=== PATIENT | male | born 1930 | race Hispanic/Latino ===

== ENCOUNTER 2017-03-17 11:00 | Inpatient (IN) | payer MEDICARE ==
--- NOTE | 2017-03-17 11:11 | C.PDOC ---
History Of Present Illness 86M c/o head and neck pain after a fall last night around 7pm- he says he slipped and fell in his home while he was trying to throw something in a waste basket. he was unable to get up so he lay there until this morning when someone checked on him and found him lying on the floor. his nephew says he fell a few days ago and has been c/o low back pain also since then but refused to come to the hospital. - HPI Time Seen by Provider: 03/17/17 11:11 Chief Complaint (Nursing): Trauma Past Medical History Vital Signs: Last Vital Signs Temp 99.0 F 03/21/17 08:14 Pulse 78 03/21/17 08:14 Resp 20 03/21/17 08:14 BP 132/72 03/21/17 08:14 Pulse Ox 95 03/21/17 08:14 Family History: States: Other Other Family History: nc Review Of Systems Except As Marked, All Systems Reviewed And Found Negative. Constitutional: Negative for: Fever, Chills Cardiovascular: Negative for: Chest Pain Respiratory: Negative for: Cough, Shortness of Breath Gastrointestinal: Negative for: Nausea, Vomiting, Abdominal Pain Musculoskeletal: Positive for: Neck Pain Neurological: Positive for: Headache. Negative for: Weakness, Numbness Physical Exam - Physical Exam Appears: Non-toxic, No Acute Distress Skin: Warm, Dry Head: Swelling (occipital ), No Laceration Eye(s): bilateral: PERRL, EOMI Nose: No Epistaxis Oral Mucosa: Moist Neck: Normal ROM, Midline Cervical Tenderness Chest: No Deformity, No Ecchymosis Cardiovascular: Rhythm Regular Respiratory: No Decreased Breath Sounds, No Accessory Muscle Use, No Rales, No Rhonchi Gastrointestinal/Abdominal: Soft, No Tenderness Extremity: Normal ROM, No Deformity Pulses: Left Radial: Normal, Right Radial: Normal, Left Dorsalis Pedis: Normal, Right Dorsalis Pedis: Normal Neurological/Psych: Oriented x3, Normal Cranial Nerves, Normal Motor, Normal Sensation, Other (no focal deficits) ED Course And Treatment - Laboratory Results Result Diagrams: 03/21/17 07:28 03/21/17 07:28 - Other Rad X-Ray - Lumbar Spine X-Ray: Viewed By Me, Read By Radiologist Interpretation: PROCEDURE: Radiographs of the Lumbar Spine. HISTORY: fall pain. COMPARISON: No prior. FINDINGS: BONES: Normal lumbar curvature appreciated there is no spondylolisthesis, however, there is a moderate compression fracture the L2 vertebral body which is diminished in height prostate 50 per sec compared to the surrounding vertebral bodies that at the mid portion. No suspicious lytic or blastic changes seen related. Remaining review bodies appear normal in height overall. Diffuse osteopenia suggests osteoporosis. DISC SPACES: Multilevel spondylosis appears moderate in severity in concentrated at the mid to inferior levels. Disc height loss is mild at L4-5 indicative of degenerative disc disease as well. OTHER FINDINGS: None. IMPRESSION: 1. Moderate compression fracture L2, of indeterminate age. MRI or bone scan can better define stage a fracture than radiography. CT may be helpful. 2. Multilevel degenerative disc disease. 3. Diffuse osteopenia suggests osteoporosis. X-Ray - Pelvis X-Ray: Viewed By Me, Read By Radiologist Interpretation: PROCEDURE: Radiographs of the pelvis. HISTORY: fall. COMPARISON: None. FINDINGS: BONES: No suspicious lytic or blastic changes seen throughout the pelvic ring with the bilateral hip joints. No fractures identified grossly. JOINTS: Sacroiliac Joints: Sacroiliac and bilateral hip joints appear mildly degenerated and otherwise unremarkable. Pubic Symphysis: Unremarkable. OTHER FINDINGS: None. IMPRESSION: An intact pelvic ring is appreciated without fracture apparent. Moderate degenerate changes seen the bilateral hip and sacroiliac joints. CXR X-Ray: Viewed By Me, Read By Radiologist Interpretation: PROCEDURE: CHEST RADIOGRAPH, 1 VIEW. HISTORY: fall. COMPARISON: None available. FINDINGS: LUNGS: No acute infiltrate is identified bilaterally. PLEURA: No pneumothorax or pleural fluid seen. CARDIOVASCULAR: Cardiac silhouette appears somewhat prominent however there is no pulmonary vascular derangement appreciated. Trachea is midline. OSSEOUS STRUCTURES: No significant abnormalities. VISUALIZED UPPER ABDOMEN: Normal. OTHER FINDINGS: None. IMPRESSION: No definite acute pulmonary disease bilaterally. Cardiomegaly is not excluded. No pulmonary vascular derangement. - CT Scan/US CT - Head Other Rad Studies (CT/US): Read By Radiologist, Radiology Report Reviewed CT/US Interpretation: PROCEDURE: CT HEAD WITHOUT CONTRAST. HISTORY: fall head pain. COMPARISON: None available. TECHNIQUE: Axial computed tomography images were obtained through the head/brain without intravenous contrast. Radiation dose: Total exam DLP = 1040.03 mGy-cm. This CT exam was performed using one or more of the following dose reduction techniques: Automated exposure control, adjustment of the mA and/or kV according to patient size, and/ or use of iterative reconstruction technique. FINDINGS: HEMORRHAGE: No intracranial hemorrhage. BRAIN: Diffuse atrophy with prominence of the ventricles and sulci noted. No mass effect or edema. Intracranial atherosclerosis. Scattered periventricular and subcortical white matter hypodensities, which are nonspecific, but often seen with chronic microvascular ischemic disease. Please note that MRI with diffusion imaging is more sensitive in the detection of acute ischemic event. VENTRICLES: No hydrocephalus. CALVARIUM: Unremarkable. PARANASAL SINUSES: Unremarkable as visualized. No significant inflammatory changes. MASTOID AIR CELLS: Unremarkable as visualized. No inflammatory changes. OTHER FINDINGS: Small scalp hematoma at the vertex. IMPRESSION: No acute intracranial pathology identified. Small scalp hematoma at the vertex. Generalized atrophy. Nonspecific white matter changes. CT - Cervical Spine Other Rad Studies (CT/US): Read By Radiologist, Radiology Report Reviewed CT/US Interpretation: PROCEDURE: CT Cervical Spine without contrast. HISTORY: <fall neck pain>. COMPARISON: None available. TECHNIQUE: Axial computed tomography images were obtained of the cervical spine without the use of intravenous contrast. Coronal and sagittal reformatted images were created and reviewed. Radiation dose: Total exam DLP = 499.22 mGy-cm. This CT exam was performed using one or more of the following dose reduction techniques: Automated exposure control, adjustment of the mA and/or kV according to patient size, and/or use of iterative reconstruction technique. FINDINGS: VERTEBRAE: The vertebral bodies are maintained in height. Normal vertebral alignment is maintained. The atlantoaxial articulation and odontoid process are intact. DISCS/SPINAL CANAL/NEURAL FORAMINA: Multilevel degenerative disc disease from C3-4 through C6-7 with disc space narrowing and osteophytes. No central spinal stenosis. There is significant right neural foraminal stenosis at the C4-5 intervertebral disc space level. Moderate neural foraminal stenosis is noted on the left side at C3-4. PARASPINAL SOFT TISSUES: Unremarkable. OTHER FINDINGS : None. IMPRESSION: No fracture/ dislocation. Multilevel degenerative disc disease. Medical Decision Making Medical Decision Making: ecg- nsr [id number], nl axis, no acute ischemia Disposition - Disposition Disposition: HOSPITALIZED Disposition Time: 15:05 Condition: STABLE - Clinical Impression Clinical Impression: Frequent falls, Generalized weakness, Bandemia
[2017-03-17 11:43] LABS: BASO # 0.3 K/uL (0.0-0.2); BASO % 2.3 % (0.0-2.0); EOS # 0.4 K/uL (0.0-0.7); EOS % 2.8 % (0.0-4.0); HEMATOCRIT 31.1 % (35.0-51.0); LYMPH # 1.2 K/uL (1.0-4.3); LYMPH % 7.9 % (20.0-40.0); MEAN CELL VOLUME 75.9 fL (80.0-94.0); MEAN CORPUSCULAR HEMOGLOBIN 23.8 pg (27.0-31.0); MEAN CORPUSCULAR HGB CONC 31.4 g/dL (33.0-37.0); MONO % 6.7 % (0.0-10.0); NRBC % 0.2 % (0.0-2.0); PLATELET COUNT 672 K/uL (130-400); RED CELL DISTRIBUTION WIDTH 20.9 % (11.5-14.5); WHITE BLOOD COUNT 15.2 K/uL (4.8-10.8)
[2017-03-17 11:47] LABS: CHLORIDE 105 mmol/L (98-107); INR 1.4; POTASSIUM 4.5 mmol/L (3.6-5.2); SODIUM 142 mmol/L (132-148)
[2017-03-17 11:49] LABS: AST/SGOT 32 U/L (17-59); BILIRUBIN,TOTAL 0.8 mg/dL (0.2-1.3); CARBON DIOXIDE 25 mmol/L (22-30); GFR AFRICAN-AMERICAN > 60
[2017-03-17 11:50] LABS: ALB/GLOB RATIO 0.9 (1.0-2.1); ALKALINE PHOSPHATASE 121 U/L (38-126); ALT/SGPT 22 U/L (21-72); BLOOD UREA NITROGEN 27 mg/dL (9-20); CALCIUM 8.6 mg/dl (8.6-10.4); GLUCOSE,RANDOM 139 mg/dL (75-110); TOTAL PROTEIN 7.4 g/dL (6.3-8.3)
[2017-03-17 12:21] LABS: VENOUS BLOOD GAS BASE EXCESS 2.2 mmol/L (0.0-2.0); VENOUS BLOOD GAS PCO2 46 mmHg (40-60); VENOUS BLOOD PH 7.39 (7.32-7.43)
[2017-03-17 12:22] LABS: EOSINOPHIL 5 % (0-4); METAMYELOCYTE 1 % (0-0); MYELOCYTE 8 % (0-0); NEUTROPHIL 48 % (50-75); TOTAL CELLS COUNTED 100
[2017-03-17 12:24] LABS: GIANT PLATELETS PRESENT; LARGE PLATELETS PRESENT
--- NOTE | 2017-03-17 12:38 | CT ---
PROCEDURE: CT HEAD WITHOUT CONTRAST. HISTORY: fall head pain COMPARISON: None available. TECHNIQUE: Axial computed tomography images were obtained through the head/brain without intravenous contrast. Radiation dose: Total exam DLP = 1040.03 mGy-cm. This CT exam was performed using one or more of the following dose reduction techniques: Automated exposure control, adjustment of the mA and/or kV according to patient size, and/or use of iterative reconstruction technique. FINDINGS: HEMORRHAGE: No intracranial hemorrhage. BRAIN: Diffuse atrophy with prominence of the ventricles and sulci noted. No mass effect or edema. Intracranial atherosclerosis. Scattered periventricular and subcortical white matter hypodensities, which are nonspecific, but often seen with chronic microvascular ischemic disease. Please note that MRI with diffusion imaging is more sensitive in the detection of acute ischemic event. VENTRICLES: No hydrocephalus. CALVARIUM: Unremarkable. PARANASAL SINUSES: Unremarkable as visualized. No significant inflammatory changes. MASTOID AIR CELLS: Unremarkable as visualized. No inflammatory changes. OTHER FINDINGS: Small scalp hematoma at the vertex. IMPRESSION: No acute intracranial pathology identified. Small scalp hematoma at the vertex. Generalized atrophy. Nonspecific white matter changes.
--- NOTE | 2017-03-17 12:55 | CT ---
PROCEDURE: CT Cervical Spine without contrast HISTORY: <fall neck pain> COMPARISON: None available. TECHNIQUE: Axial computed tomography images were obtained of the cervical spine without the use of intravenous contrast. Coronal and sagittal reformatted images were created and reviewed. Radiation dose: Total exam DLP = 499.22 mGy-cm. This CT exam was performed using one or more of the following dose reduction techniques: Automated exposure control, adjustment of the mA and/or kV according to patient size, and/or use of iterative reconstruction technique. FINDINGS: VERTEBRAE: The vertebral bodies are maintained in height. Normal vertebral alignment is maintained. The atlantoaxial articulation and odontoid process are intact. DISCS/SPINAL CANAL/NEURAL FORAMINA: Multilevel degenerative disc disease from C3-4 through C6-7 with disc space narrowing and osteophytes. No central spinal stenosis. There is significant right neural foraminal stenosis at the C4-5 intervertebral disc space level. Moderate neural foraminal stenosis is noted on the left side at C3-4. PARASPINAL SOFT TISSUES: Unremarkable. OTHER FINDINGS: None. IMPRESSION: No fracture/ dislocation. Multilevel degenerative disc disease.
[2017-03-17 12:57] LABS: RBC URINE 1 /hpf (0-3); URINE BACTERIA RARE (<OCC); URINE BILIRUBIN NEGATIVE (NEGATIVE); URINE BLOOD NEGATIVE (NEGATIVE); URINE COLOR Yellow (YELLOW); URINE GLUCOSE (UA) NORMAL (Normal); URINE KETONE NEGATIVE (NEGATIVE); URINE LEUKOCYTE ESTERASE NEG Leu/uL (Negative); URINE PROTEIN NEGATIVE (NEGATIVE); WBC URINE 2 /hpf (0-5)
--- NOTE | 2017-03-17 13:03 | RAD ---
PROCEDURE: Radiographs of the pelvis. HISTORY: fall COMPARISON: None. FINDINGS: BONES: No suspicious lytic or blastic changes seen throughout the pelvic ring with the bilateral hip joints. No fractures identified grossly. JOINTS: Sacroiliac Joints: Sacroiliac and bilateral hip joints appear mildly degenerated and otherwise unremarkable. Pubic Symphysis: Unremarkable. OTHER FINDINGS: None. IMPRESSION: An intact pelvic ring is appreciated without fracture apparent. Moderate degenerate changes seen the bilateral hip and sacroiliac joints.
--- NOTE | 2017-03-17 13:06 | RAD ---
PROCEDURE: CHEST RADIOGRAPH, 1 VIEW HISTORY: fall COMPARISON: None available. FINDINGS: LUNGS: No acute infiltrate is identified bilaterally. PLEURA: No pneumothorax or pleural fluid seen. CARDIOVASCULAR: Cardiac silhouette appears somewhat prominent however there is no pulmonary vascular derangement appreciated. Trachea is midline. OSSEOUS STRUCTURES: No significant abnormalities. VISUALIZED UPPER ABDOMEN: Normal. OTHER FINDINGS: None. IMPRESSION: No definite acute pulmonary disease bilaterally. Cardiomegaly is not excluded. No pulmonary vascular derangement.
--- NOTE | 2017-03-17 13:15 | RAD ---
PROCEDURE: Radiographs of the Lumbar Spine. HISTORY: fall pain COMPARISON: No prior. FINDINGS: BONES: Normal lumbar curvature appreciated there is no spondylolisthesis, however, there is a moderate compression fracture the L2 vertebral body which is diminished in height prostate 50 per sec compared to the surrounding vertebral bodies that at the mid portion. No suspicious lytic or blastic changes seen related. Remaining review bodies appear normal in height overall. Diffuse osteopenia suggests osteoporosis. DISC SPACES: Multilevel spondylosis appears moderate in severity in concentrated at the mid to inferior levels. Disc height loss is mild at L4-5 indicative of degenerative disc disease as well. OTHER FINDINGS: None. IMPRESSION: 1. Moderate compression fracture L2, of indeterminate age. MRI or bone scan can better define stage a fracture than radiography. CT may be helpful. 2. Multilevel degenerative disc disease. 3. Diffuse osteopenia suggests osteoporosis.
[2017-03-17] MEDS ORDERED: Sodium Chloride 0.9% 1,000 ML IV ONE (13:41)
[2017-03-17] MEDS ORDERED: Sodium Chloride 0.9% 1,000 ML ONE (17:03)
[2017-03-17] MEDS: Sodium Chloride 0.9% 1,000 ML IV SCH (17:03)
--- NOTE | 2017-03-17 18:32 | CP.PCM.HP ---
Past Patient History - Past Social History Smoking Status: Never Smoked - PSYCHIATRIC Hx Substance Use: No - SURGICAL HISTORY Hx Surgeries: No - ANESTHESIA Hx Anesthesia: No Hx Anesthesia Reactions: No Meds Allergies/Adverse Reactions: Allergies Allergy/AdvReac Type Severity Reaction Status Date / Time No Known Allergies Allergy Unverified 03/17/17 11:11 Physical Exam - Constitutional Appears: Well - Head Exam Head Exam: ATRAUMATIC, NORMAL INSPECTION, NORMOCEPHALIC - Eye Exam Eye Exam: EOMI, Normal appearance, PERRL Pupil Exam: NORMAL ACCOMODATION, PERRL - ENT Exam ENT Exam: Mucous Membranes Moist, Normal Exam - Neck Exam Neck exam: Positive for: Normal Inspection - Respiratory Exam Respiratory Exam: Decreased Breath Sounds - Cardiovascular Exam Cardiovascular Exam: REGULAR RHYTHM, +S1, +S2 - GI/Abdominal Exam GI & Abdominal Exam: Diminished Bowel Sounds, Soft - Rectal Exam Rectal Exam: Deferred Results - Vital Signs Recent Vital Signs: Last Vital Signs Temp 97.5 F L 03/17/17 17:33 Pulse 95 H 03/17/17 17:33 Resp 20 03/17/17 17:33 BP 146/70 03/17/17 17:33 Pulse Ox 97 03/17/17 17:33 - Labs Result Diagrams: 03/17/17 11:31 03/17/17 11:31
--- NOTE | 2017-03-17 19:28 | CARD ---
APPROVED REPORT EKG Measurement Heart [id number] <Conclusion> Normal sinus rhythm Normal ECG
--- NOTE | 2017-03-18 00:33 | CON ---
REFERRING PHYSICIAN: Dudley Rodriguez MD REASON FOR CONSULTATION: Back pain and frequent falls. HISTORY OF PRESENT ILLNESS: The patient is an 86-year-old gentleman, right handed, with past medical history of frequent falls. The patient was admitted because of a fall at home the night before around 7:00, and the patient was unable to stand up until a family member came this morning and found him on the floor and picked him up from the floor. The patient stated that he has been falling lately for the last 2 months, and he fell down a few days ago and then few weeks ago. The patient is not sure how he is falling; his slips, trips or his legs give away. The patient has been complaining of some back pain for the last few days after the fall before few days ago. The patient stated he used to do exercise, but for the last few months, he stopped doing it. The patient lives alone, able to take care of himself. The patient denies loss of consciousness, confusion. The patient is ambulating independently without use of cane. The patient is complaining of low back pain, not radiating to lower extremities, moderately severe. The patient did not seek medical attention after previous admissions until this admission. No CAT scan or MRI or x-rays in the past. PAST MEDICAL HISTORY: No significant past medical history. SOCIAL HISTORY: Nonsmoker, ethanol or drug abuser. ALLERGIES: NO KNOWN ALLERGIC REACTION TO MEDICATIONS. MEDICATIONS: Acetaminophen and pantoprazole. PAST SURGICAL HISTORY: No major surgery in the past. REVIEW OF SYSTEMS: As per H and P and ER noted reviewed. PHYSICAL EXAMINATION VITAL SIGNS: Blood pressure 106/60, pulse 90, respirations 16, temperature 99.1. MENTAL STATUS: The patient is alert, awake and oriented x3. Normal naming, repetition and comprehension. No agnosia. No apraxia. No right or left confusion. CRANIAL NERVES: Pupils 2 mm bilaterally, sluggishly reactive. No facial asymmetry. V1 to V3 intact. No gaze preference. No nystagmus. No double vision. There is muscle wasting in upper and lower extremities and facial muscles. MOTOR: Normal tone in upper and lower extremities. No pronator drift. No tremor. No cogwheel rigidity. The upper extremity, deltoid, elbow geoint analyst overall 5-/5. Lower extremities: Bilateral hip flexion 4+/5, knee flexion and extension and ankle dorsiflexion and plantar extension 4+ to 5/5. Deep tendon reflexes absent in upper and lower extremities. Plantar flexion on both sides. SENSORY: Pinprick, light touch symmetric. Coordination, [id number] intact. LABORATORY DATA: Reviewed. White blood cells 16, red blood cells 4, hemoglobin 9.8, hematocrit 30.1, MCV 75. Sodium 142, potassium 4.5, chloride 105, CO2 of 25, anion gap 16, BUN 27, creatinine 0.6, calcium 8.6, alkaline phosphatase 121. Creatine kinase 208. Albumin 0.9. IMPRESSION: The patient's low back pain is secondary to L2 compression fracture, the date exactly is not known, is probably few days ago or few weeks ago, although the patient stated he did not have back pain in the last few months despite the falls, but this one for the last few days, he has been complaining of low back pain in the last 2 weeks. The patient's falls are probably multifactorial, arthritic and central etiology. The patient is not getting out of the house and not doing exercise on a regular basis, which he used to do in the past and currently stopped. I have reviewed the CAT scan also of the brain which did not reveal acute finding or subdural hematoma, consistent with atrophy and periventricular white matter disease. PLAN: 1. At this point, the patient needs a brace to be ordered by orthopedist or manager chinese. 2. Pain management. 3. Physical therapy. The patient may need DEXA scan and possibility of osteoporosis is likely. If the patient's symptoms persisted for 5 to 6 weeks, the patient may benefit from kyphoplasty if the pain is severe; otherwise, conservative treatment may be sufficient. Above discussed with a niece at bedside and the patient, and all their questions and concerns were answered. There is no significant focal motor deficit or retropulsion of the fracture. Neurologically, the patient is stable and the main concern is the pain and then ambulation. The patient will need physical therapy as an inpatient and then after as an outpatient. Thank you for the consultation. I will sign off the case. If needed, I can be called or Dr. Rich will be back on Monday. Thank you for the referral. Glen Castaneda MD [facility] # [id number] [place]
[2017-03-18] MEDS: Sodium Chloride 0.9% 1,000 ML IV SCH ×4 (01:41→20:44)
[2017-03-18] MEDS: Pantoprazole 40 mg EC Tab PO SCH (09:55)
[2017-03-18] MEDS: Enoxaparin 40 mg Syringe SC SCH (09:56)
--- NOTE | 2017-03-18 15:08 | CP.PCM.PN ---
Subjective - Date & Time of Evaluation Date of Evaluation: 03/18/17 Time of Evaluation: 08:00 - Subjective Subjective: clinically same Objective - Vital Signs/Intake and Output Vital Signs (last 24 hours): Temp Pulse Resp BP Pulse Ox 99 F 92 H 20 129/64 95 03/18/17 08:56 03/18/17 08:56 03/18/17 08:56 03/18/17 08:56 03/18/17 08:56 Intake and Output: 03/18/17 03/18/17 06:59 18:59 Intake Total 1700 1040 Output Total 740 425 Balance 960 615 - Medications Medications: Current Medications Enoxaparin Sodium (Lovenox) 40 mg SC DAILY [facility] Last Admin: 03/18/17 09:56 Dose: 40 mg Sodium Chloride (Sodium Chloride 0.9%) 1,000 mls @ 100 mls/hr IV .Q10H [facility] Last Admin: 03/18/17 09:55 Dose: 100 mls/hr Pantoprazole Sodium (Protonix Ec Tab) 40 mg PO DAILY [facility] Last Admin: 03/18/17 09:55 Dose: 40 mg - Labs Labs: PT 16.2 SECONDS (9.7-12.2) H 03/17/17 11:31 INR 1.4 03/17/17 11:31 APTT 29 SECONDS (21-34) 03/17/17 11:31 - Constitutional Appears: Well - Head Exam Head Exam: ATRAUMATIC, NORMAL INSPECTION, NORMOCEPHALIC - Eye Exam Eye Exam: EOMI, Normal appearance, PERRL Pupil Exam: NORMAL ACCOMODATION, PERRL - ENT Exam ENT Exam: Mucous Membranes Moist, Normal Exam - Neck Exam Neck Exam: Full ROM, Normal Inspection. absent: Lymphadenopathy - Respiratory Exam Respiratory Exam: Decreased Breath Sounds - Cardiovascular Exam Cardiovascular Exam: REGULAR RHYTHM, +S1, +S2 - GI/Abdominal Exam GI & Abdominal Exam: Soft, Diminished Bowel Sounds - Rectal Exam Rectal Exam: Deferred
[2017-03-18] MEDS: HYDROmorphone 0.5 mg/0.5 ml ISec IVP PRN (17:34)
[2017-03-19] MEDS: Sodium Chloride 0.9% 1,000 ML IV SCH ×2 (05:43→15:45)
--- NOTE | 2017-03-19 10:48 | CP.PCM.PN ---
Subjective - Date & Time of Evaluation Date of Evaluation: 03/19/17 Time of Evaluation: 07:40 - Subjective Subjective: clinically same Objective - Vital Signs/Intake and Output Vital Signs (last 24 hours): Temp Pulse Resp BP Pulse Ox 99 F 111 H 20 116/72 95 03/19/17 08:39 03/19/17 08:39 03/19/17 08:39 03/19/17 08:39 03/19/17 08:39 Intake and Output: 03/19/17 03/19/17 06:59 18:59 Intake Total 1900 Balance 1900 - Medications Medications: Current Medications Enoxaparin Sodium (Lovenox) 40 mg SC DAILY [facility] Last Admin: 03/18/17 09:56 Dose: 40 mg Hydromorphone HCl (Dilaudid) 0.5 mg IVP Q6H PRN PRN Reason: Pain, moderate (4-7) Last Admin: 03/18/17 17:34 Dose: 0.5 mg Sodium Chloride (Sodium Chloride 0.9%) 1,000 mls @ 100 mls/hr IV .Q10H [facility] Last Admin: 03/19/17 05:43 Dose: 100 mls/hr Pantoprazole Sodium (Protonix Ec Tab) 40 mg PO DAILY [facility] Last Admin: 03/18/17 09:55 Dose: 40 mg - Labs Labs: PT 16.2 SECONDS (9.7-12.2) H 03/17/17 11:31 INR 1.4 03/17/17 11:31 APTT 29 SECONDS (21-34) 03/17/17 11:31 - Constitutional Appears: Well - Head Exam Head Exam: ATRAUMATIC, NORMAL INSPECTION, NORMOCEPHALIC - Eye Exam Eye Exam: EOMI, Normal appearance, PERRL Pupil Exam: NORMAL ACCOMODATION, PERRL - ENT Exam ENT Exam: Mucous Membranes Moist, Normal Exam - Neck Exam Neck Exam: Full ROM, Normal Inspection. absent: Lymphadenopathy - Respiratory Exam Respiratory Exam: Decreased Breath Sounds - Cardiovascular Exam Cardiovascular Exam: REGULAR RHYTHM, +S1, +S2 - GI/Abdominal Exam GI & Abdominal Exam: Soft, Diminished Bowel Sounds - Rectal Exam Rectal Exam: Deferred
[2017-03-19] MEDS: Pantoprazole 40 mg EC Tab PO SCH (11:00)
[2017-03-19] MEDS: Enoxaparin 40 mg Syringe SC SCH (11:00)
[2017-03-19 23:48] VITALS: RESP 20
[2017-03-20] MEDS: Sodium Chloride 0.9% 1,000 ML IV SCH ×2 (01:18→11:57)
[2017-03-20] MEDS: Enoxaparin 40 mg Syringe SC SCH (09:41)
[2017-03-20] MEDS: Pantoprazole 40 mg EC Tab PO SCH (09:41)
--- NOTE | 2017-03-20 10:47 | CP.PCM.CON ---
History of Present Illness - History of Present Illness History of Present Illness: SPINE CONSULT Pt seen and examined. Full consult dictated. Pt needs MRI to assess age of fx and possible need for bracing. Past Patient History - Past Medical History & Family History Past Medical History?: No - Past Social History Smoking Status: Never Smoked - MUSCULOSKELETAL/RHEUMATOLOGICAL Hx Falls: Yes - PSYCHIATRIC Hx Substance Use: No - SURGICAL HISTORY Hx Surgeries: No - ANESTHESIA Hx Anesthesia: No Hx Anesthesia Reactions: No Meds Allergies/Adverse Reactions: Allergies Allergy/AdvReac Type Severity Reaction Status Date / Time No Known Allergies Allergy Unverified 03/17/17 11:11 - Medications Medications: Current Medications Enoxaparin Sodium (Lovenox) 40 mg SC DAILY [facility] Last Admin: 03/20/17 09:41 Dose: 40 mg Hydromorphone HCl (Dilaudid) 0.5 mg IVP Q6H PRN PRN Reason: Pain, moderate (4-7) Last Admin: 03/18/17 17:34 Dose: 0.5 mg Sodium Chloride (Sodium Chloride 0.9%) 1,000 mls @ 100 mls/hr IV .Q10H [facility] Last Admin: 03/20/17 01:18 Dose: 100 mls/hr Pantoprazole Sodium (Protonix Ec Tab) 40 mg PO DAILY [facility] Last Admin: 03/20/17 09:41 Dose: 40 mg Results - Vital Signs Recent Vital Signs: Last Vital Signs Temp 98 F 03/20/17 08:00 Pulse 82 03/20/17 08:00 Resp 20 03/20/17 08:00 BP 158/76 H 03/20/17 08:00 Pulse Ox 95 03/20/17 08:00 - Labs Result Diagrams: 03/17/17 11:31 03/17/17 11:31
[2017-03-20] MEDS: HYDROmorphone 0.5 mg/0.5 ml ISec IVP PRN (11:57)
--- NOTE | 2017-03-20 13:57 | CON ---
DATE: 03/20/2017 REASON FOR CONSULTATION: Fractured L2. HISTORY OF PRESENT ILLNESS: The patient is an 86-year-old young gentleman, who according to the chart has a history of multiple falls recently. He was brought to the emergency room on Monday having been found at home following the fall the night before. He was complaining of head and neck pain. X-rays and CAT scan of the head and neck were done, which did not reveal any acute abnormalities. However, he is also complaining of significant lower back pain until a family member stated he has fallen a week or 2 prior to that and had the onset of the back pain, but refused to go to the hospital at that time. He denies any radicular complaints. No loss of bowel or bladder control. PAST MEDICAL HISTORY: No significant past medical history. PAST SURGICAL HISTORY: No past surgical history. MEDICATIONS: He states he does not take any medications and only takes vitamins. ALLERGIES: HE DENIES ANY ALLERGIES TO ANY MEDICATIONS. PHYSICAL EXAMINATION: On examination, he has tenderness to palpation on the mid lumbar region. He has difficulties in logrolling in bed because of pain. He moves both lower extremities fully and actively. He can lift each leg off the bed. His sensory is intact to light touch. Motor strength is pretty much 5/5 in the groups tested. No clonus or Babinski's present. Decent distal pulses. LABORATORY DATA: Plain x-ray was done, which again shows superior endplate fracture of L2. No obvious posterior disruption. There may be mild fractured T12 as well. IMPRESSION: Fractured L2. PLAN: We will order an MRI, which had been suggested on Monday, when Dr. Fried was called, in order to assess the age of this fracture. If it is acute, we will order a Clark brace for him and have therapy mobilize as his pain allows. If there are no acute fractures, then this is just a bad sprain/strain from the fall, then therapy can mobilize him again as his pain allows, but no bracing would be needed. Thank you for allowing me to participate in the care of your patient. Dain Galarza MD
[2017-03-20 18:17] LABS: BASO # 0.3 K/uL (0.0-0.2); BASO % 1.6 % (0.0-2.0); EOS # 0.6 K/uL (0.0-0.7); EOS % 3.4 % (0.0-4.0); HEMATOCRIT 26.7 % (35.0-51.0); LYMPH # 1.4 K/uL (1.0-4.3); MEAN CELL VOLUME 75.2 fL (80.0-94.0); MEAN CORPUSCULAR HEMOGLOBIN 23.7 pg (27.0-31.0); MEAN CORPUSCULAR HGB CONC 31.6 g/dL (33.0-37.0); MEAN PLATELET VOLUME 7.9 fL (7.2-11.7); MONO # 1.1 K/uL (0.0-0.8); MONO % 5.9 % (0.0-10.0); NRBC % 0.3 % (0.0-2.0); PLATELET COUNT 639 K/uL (130-400); RED CELL DISTRIBUTION WIDTH 21.1 % (11.5-14.5); WHITE BLOOD COUNT 18.1 K/uL (4.8-10.8)
[2017-03-20 18:23] LABS: RBC URINE 3 /hpf (0-3); URINE BILIRUBIN NEGATIVE (NEGATIVE); URINE BLOOD NEGATIVE (NEGATIVE); URINE COLOR Yellow (YELLOW); URINE GLUCOSE (UA) NORMAL (Normal); URINE KETONE NEGATIVE (NEGATIVE); URINE LEUKOCYTE ESTERASE NEG Leu/uL (Negative); URINE PROTEIN NEGATIVE (NEGATIVE); URINE UROBILINOGEN NORMAL mg/dL (0.2-1.0); WBC URINE 4 /hpf (0-5)
[2017-03-20 18:25] LABS: CHLORIDE 107 mmol/L (98-107)
[2017-03-20 18:26] LABS: POTASSIUM 4.1 mmol/L (3.6-5.2); SODIUM 138 mmol/L (132-148)
[2017-03-20 18:28] LABS: ALB/GLOB RATIO 0.9 (1.0-2.1); ALKALINE PHOSPHATASE 90 U/L (38-126); AST/SGOT 30 U/L (17-59); BILIRUBIN,TOTAL 0.5 mg/dL (0.2-1.3); CARBON DIOXIDE 24 mmol/L (22-30); GFR AFRICAN-AMERICAN > 60; TOTAL PROTEIN 6.4 g/dL (6.3-8.3)
[2017-03-20 18:29] LABS: ALT/SGPT 27 U/L (21-72); BLOOD UREA NITROGEN 16 mg/dL (9-20); CALCIUM 8.1 mg/dl (8.6-10.4); GLUCOSE,RANDOM 104 mg/dL (75-110)
[2017-03-20 19:09] LABS: EOSINOPHIL 6 % (0-4); METAMYELOCYTE 2 % (0-0); MYELOCYTE 9 % (0-0); NEUTROPHIL 49 % (50-75); TOTAL CELLS COUNTED 100
--- NOTE | 2017-03-20 21:23 | CP.PCM.PN ---
Subjective - Date & Time of Evaluation Date of Evaluation: 03/20/17 Time of Evaluation: 08:00 - Subjective Subjective: clinically same Objective - Vital Signs/Intake and Output Vital Signs (last 24 hours): Temp Pulse Resp BP Pulse Ox 101.1 F H 98 H 20 156/66 H 95 03/20/17 18:12 03/20/17 16:00 03/20/17 16:00 03/20/17 16:00 03/20/17 16:00 Intake and Output: 03/20/17 03/21/17 18:59 06:59 Intake Total 1040 Balance 1040 - Medications Medications: Current Medications Acetaminophen (Tylenol 325mg Tab) 650 mg PO Q6 PRN PRN Reason: Fever >100.4 F Last Admin: 03/20/17 18:12 Dose: 650 mg Enoxaparin Sodium (Lovenox) 40 mg SC DAILY [facility] Last Admin: 03/20/17 09:41 Dose: 40 mg Hydromorphone HCl (Dilaudid) 0.5 mg IVP Q6H PRN PRN Reason: Pain, moderate (4-7) Last Admin: 03/20/17 11:57 Dose: 0.5 mg Cefepime HCl 1 gm/ Dextrose 50 mls @ 100 mls/hr IVPB Q12H [facility] Last Admin: 03/20/17 18:36 Dose: 100 mls/hr Pantoprazole Sodium (Protonix Ec Tab) 40 mg PO DAILY [facility] Last Admin: 03/20/17 09:41 Dose: 40 mg - Labs Labs: 03/20/17 18:13 03/20/17 18:13 PT 16.2 SECONDS (9.7-12.2) H 03/17/17 11:31 INR 1.4 03/17/17 11:31 APTT 29 SECONDS (21-34) 03/17/17 11:31 - Constitutional Appears: Well - Head Exam Head Exam: ATRAUMATIC, NORMAL INSPECTION, NORMOCEPHALIC - Eye Exam Eye Exam: EOMI, Normal appearance, PERRL Pupil Exam: NORMAL ACCOMODATION, PERRL - ENT Exam ENT Exam: Mucous Membranes Moist, Normal Exam - Neck Exam Neck Exam: Full ROM, Normal Inspection. absent: Lymphadenopathy - Respiratory Exam Respiratory Exam: Decreased Breath Sounds - Cardiovascular Exam Cardiovascular Exam: REGULAR RHYTHM, +S1, +S2 - GI/Abdominal Exam GI & Abdominal Exam: Soft, Diminished Bowel Sounds - Rectal Exam Rectal Exam: Deferred Assessment and Plan - Assessment and Plan (Free Text) Plan: Case seen and discussed with the staff MRI ordered to excess the age of the fracture Patient's pain is not controlled will increase the pain medicine as needed patient told to try discussed with the patient's pain
[2017-03-21 07:36] LABS: BASO # 0.3 K/uL (0.0-0.2); BASO % 1.8 % (0.0-2.0); EOS # 0.4 K/uL (0.0-0.7); EOS % 2.8 % (0.0-4.0); LYMPH # 1.6 K/uL (1.0-4.3); MEAN CELL VOLUME 75.1 fL (80.0-94.0); MEAN CORPUSCULAR HEMOGLOBIN 24.2 pg (27.0-31.0); MEAN CORPUSCULAR HGB CONC 32.2 g/dL (33.0-37.0); MEAN PLATELET VOLUME 8.2 fL (7.2-11.7); MONO # 0.9 K/uL (0.0-0.8); MONO % 5.6 % (0.0-10.0); NRBC % 0.2 % (0.0-2.0); PLATELET COUNT 586 K/uL (130-400); RED CELL DISTRIBUTION WIDTH 20.9 % (11.5-14.5); WHITE BLOOD COUNT 15.5 K/uL (4.8-10.8)
[2017-03-21 08:06] LABS: CHLORIDE 105 mmol/L (98-107); POTASSIUM 4.1 mmol/L (3.6-5.2); SODIUM 137 mmol/L (132-148)
[2017-03-21 08:08] LABS: GFR AFRICAN-AMERICAN > 60
[2017-03-21 08:09] LABS: ALB/GLOB RATIO 0.8 (1.0-2.1); ALKALINE PHOSPHATASE 79 U/L (38-126); ALT/SGPT 22 U/L (21-72); AST/SGOT 23 U/L (17-59); BILIRUBIN,TOTAL 0.5 mg/dL (0.2-1.3); BLOOD UREA NITROGEN 16 mg/dL (9-20); CALCIUM 7.7 mg/dl (8.6-10.4); CARBON DIOXIDE 24 mmol/L (22-30); GLUCOSE,RANDOM 90 mg/dL (75-110)
[2017-03-21] MEDS: Enoxaparin 40 mg Syringe SC SCH (09:52)
[2017-03-21] MEDS: Pantoprazole 40 mg EC Tab PO SCH (09:53)
[2017-03-21 10:03] LABS: EOSINOPHIL 7 % (0-4); METAMYELOCYTE 2 % (0-0); MYELOCYTE 6 % (0-0); NEUTROPHIL 53 % (50-75); TOTAL CELLS COUNTED 100
[2017-03-21 10:05] LABS: LARGE PLATELETS PRESENT
--- NOTE | 2017-03-21 11:19 | CP.PCM.CON ---
History of Present Illness - History of Present Illness History of Present Illness: 86M c/o head and neck pain after a fall last night around 7pm- he says he slipped and fell in his home while he was trying to throw something in a waste basket. he was unable to get up so he lay there until this morning when someone checked on him and found him lying on the floor. his nephew says he fell a few days ago and has been c/o low back pain also since then but refused to come to the hospital. ID consulted for fever septic work uopp neg thus far IV rx ordered Review of Systems - Constitutional Constitutional: As Per HPI - EENT Eyes: absent: As Per HPI, Blind Spots, Blurred Vision, Change in Vision, Decreased Night Vision, Diplopia, Discharge, Dry Eye, Exophthalmos, Floaters, Irritation, Itchy Eyes, Loss of Peripheral Vision, Pain, Photophobia, Requires Corrective Lenses, Sees Flashes, Spots in Vision, Tunnel Vision, Other Visual Disturbances, Loss of Vision, Other Ears: absent: As Per HPI, Decreased Hearing, Ear Discharge, Ear Pain, Tinnitus, Abnormal Hearing, Disequilibrium, Dizziness, Other Nose/Mouth/Throat: absent: As Per HPI, Epistaxis, Nasal Congestion, Nasal Discharge, Nasal Obstruction, Nasal Trauma, Nose Pain, Post Nasal Drip, Sinus Pain, Sinus Pressure, Bleeding Gums, Change in Voice, Dental Pain, Dry Mouth, Dysphagia, Halitosis, Hoarsness, Lip Swelling, Mouth Lesions, Mouth Pain, Odynophagia, Sore Throat, Throat Swelling, Tongue Swelling, Facial Pain, Neck Pain, Neck Mass, Other - Cardiovascular Cardiovascular: absent: As Per HPI, Acrocyanosis, Chest Pain, Chest Pain at Rest , Chest Pain with Activity, Claudication, Diaphoresis, Dyspnea, Dyspnea on Exertion, Edema, Irregular Heart Rhythm, Pain Radiating to Arm/Neck/Jaw, Leg Edema, Leg Ulcers, Lightheadedness, Orthopnea, Palpitations, Paroxysmal Nocturnal Dyspnea, Pedal Edema, Radiating Pain, Rapid Heart Rate, Slow Heart Rate, Syncope, Other - Respiratory Respiratory: absent: As Per HPI, Cough, Dyspnea, Hemoptysis, Dyspnea on Exertion , Wheezing, Snoring, Stridor, Pain on Inspiration, Chest Congestion, Excessive Mucous Production, Change in Mucous Color, Pain with Coughing, Other - Gastrointestinal Gastrointestinal: absent: As Per HPI, Abdominal Pain, Belching, Bloating, Change in Bowel Habits, Change in Stool Character, Coffee Ground Emesis, Constipation, Cramping, Diarrhea, Dyspepsia, Dysphagia, Early Satiety, Excessive Flatus, Fecal Incontinence, Heartburn, Hematemesis, Hematochezia, Loose Stools, Melena, Nausea, Odynophagia, Temesmus, Vomiting, Other - Genitourinary Genitourinary: absent: As Per HPI, Change in Urinary Stream, Difficulty Urinating, Dysuria, Flank Pain, Hematuria, Pyuria, Nocturia, Urinary Incontinence, Urinary Frequency, Urinary Hesitance, Urinary Urgency, Voiding Freq/Small Amts, Freq UTI, Hx Renal/Bladder Calculi, Hx /Renal Surgery, Bladder Distension, Other - Musculoskeletal Musculoskeletal: As Per HPI - Integumentary Integumentary: absent: As Per HPI, Acne, Alopecia, Bleeding Lesions, Change in Hair, Change in Nails, Change in Pigmentation, Changing Lesions, Dry Skin, Erythema, Furuncle, Hirsutism, Lesions, New Lesions, Non-Healing Lesions, Photosensitivity, Pruritus, Rash, Skin Pain, Skin Ulcer, Sores, Striae, Swelling , Unusual Bruising, Wounds, Jaundice, Other - Neurological Neurological: As Per HPI - Psychiatric Psychiatric: absent: As Per HPI, Abnormal Sleep Pattern, Anhedonia, Anxiety, Auditory Hallucinations, Behavioral Changes, Change in Appetite, Change in Libido, Confusion, Depression, Difficulty Concentrating, Hallucinations, Homicidal Ideation, Hopelessness, Irritability, Memory Loss, Mood Swings, Panic Attacks, Paranoia, Suicidal Ideation, Visual Hallucinations, Tactile Hallucinations, Other - Endocrine Endocrine: absent: As Per HPI, Change in Body Appearance, Change in Libido, Cold Intolorance, Deepening of Voice, Excessive Sweating, Fatigue, Flushing, Heat Intolorance, Increase in Ring/Shoe/Hat Size, Palpitations, Polydipsia, Polyphagia, Polyuria, Other - Hematologic/Lymphatic Hematologic: absent: As Per HPI, Easy Bleeding, Easy Bruising, Lymphadenopathy, Other Past Patient History - Past Medical History & Family History Past Medical History?: No - Past Social History Smoking Status: Never Smoked - MUSCULOSKELETAL/RHEUMATOLOGICAL Hx Falls: Yes - PSYCHIATRIC Hx Substance Use: No - SURGICAL HISTORY Hx Surgeries: No - ANESTHESIA Hx Anesthesia: No Hx Anesthesia Reactions: No Meds Allergies/Adverse Reactions: Allergies Allergy/AdvReac Type Severity Reaction Status Date / Time No Known Allergies Allergy Unverified 03/17/17 11:11 - Medications Medications: Current Medications Acetaminophen (Tylenol 325mg Tab) 650 mg PO Q6 PRN PRN Reason: Fever >100.4 F Last Admin: 03/20/17 18:12 Dose: 650 mg Enoxaparin Sodium (Lovenox) 40 mg SC DAILY [facility] Last Admin: 03/21/17 09:52 Dose: 40 mg Hydromorphone HCl (Dilaudid) 1 mg IVP Q6H PRN PRN Reason: Pain, moderate (4-7) Cefepime HCl 1 gm/ Dextrose 50 mls @ 100 mls/hr IVPB Q12H [facility] Last Admin: 03/21/17 06:01 Dose: 100 mls/hr Ceftriaxone Sodium 1 gm/ (Sodium Chloride) 100 mls @ 100 mls/hr IVPB DAILY [facility] Pantoprazole Sodium (Protonix Ec Tab) 40 mg PO DAILY [facility] Last Admin: 03/21/17 09:53 Dose: 40 mg Physical Exam - Constitutional Appears: Non-toxic, Chronically Ill - Head Exam Head Exam: NORMOCEPHALIC - Eye Exam Eye Exam: PERRL. absent: Scleral icterus - ENT Exam ENT Exam: Mucous Membranes Dry, Normal External Ear Exam - Neck Exam Neck exam: Negative for: Lymphadenopathy, Thyromegaly - Respiratory Exam Respiratory Exam: Decreased Breath Sounds, Rhonchi - Cardiovascular Exam Cardiovascular Exam: REGULAR RHYTHM, +S1, +S2 - GI/Abdominal Exam GI & Abdominal Exam: Diminished Bowel Sounds, Soft. absent: Tenderness - Rectal Exam Rectal Exam: Deferred - Exam Exam: NORMAL INSPECTION - Extremities Exam Extremities exam: Positive for: pedal pulses present. Negative for: calf tenderness, pedal edema, tenderness - Back Exam Back exam: absent: CVA tenderness (L), CVA tenderness (R), paraspinal tenderness - Neurological Exam Neurological exam: Alert, CN II-XII Intact, Oriented x3 - Psychiatric Exam Psychiatric exam: Normal Affect - Skin Skin Exam: Dry, Intact Results - Vital Signs Recent Vital Signs: Last Vital Signs Temp 99.0 F 03/21/17 08:14 Pulse 78 03/21/17 08:14 Resp 20 03/21/17 08:14 BP 132/72 03/21/17 08:14 Pulse Ox 95 03/21/17 08:14 - Labs Result Diagrams: 03/21/17 07:28 03/21/17 07:28 Labs: Laboratory Results - last 24 hr 03/20/17 03/20/17 03/20/17 18:13 18:13 18:13 WBC 18.1 H RBC 3.55 L Hgb 8.4 L Hct 26.7 L MCV 75.2 L MCH 23.7 L MCHC 31.6 L RDW 21.1 H Plt Count 639 H MPV 7.9 Neut % (Auto) 81.1 H Lymph % (Auto) 8.0 L [place] % (Auto) 5.9 Eos % (Auto) 3.4 Baso % (Auto) 1.6 Neut # 14.7 H Lymph # 1.4 [place] # 1.1 H Eos # 0.6 Baso # 0.3 H Neutrophils % (Manual) 49 L Band Neutrophils % 17 H* Lymphocytes % (Manual) 5 L Monocytes % (Manual) 12 H Eosinophils % (Manual) 6 H Metamyelocytes % 2 H Myelocytes % 9 H Differential Comment Platelet Estimate Increased H Large Platelets Polychromasia Slight Hypochromasia (manual) Slight Poikilocytosis (manual Anisocytosis (manual) Moderate Microcytosis (manual) Slight Macrocytosis (manual) Target Cells Tear Drop Cells Ovalocytes Slight [place] Cells Slight Schistocytes Slight Sodium 138 Potassium 4.1 Chloride 107 Carbon Dioxide 24 Anion Gap 11 BUN 16 Creatinine 0.6 L Est GFR ( Amer) > 60 Est GFR (Non-Af Amer) > 60 Random Glucose 104 Calcium 8.1 L Total Bilirubin 0.5 AST 30 ALT 27 Alkaline Phosphatase 90 Total Protein 6.4 Albumin 3.0 L Globulin 3.5 Albumin/Globulin Ratio 0.9 L Urine Color Yellow Urine Clarity Clear Urine pH 6.0 Ur Specific [place] 1.015 Urine Protein Negative Urine Glucose (UA) Normal Urine Ketones Negative Urine Blood Negative Urine Nitrate Negative Urine Bilirubin Negative Urine Urobilinogen Normal Ur Leukocyte Esterase Neg Urine WBC (Auto) 4 Urine RBC (Auto) 3 Ur Squamous Epith Cells 1 Amorphous Sediment Occ H 03/21/17 03/21/17 07:28 07:28 WBC 15.5 H RBC 3.33 L Hgb 8.0 L Hct 25.0 L MCV 75.1 L MCH 24.2 L MCHC 32.2 L RDW 20.9 H Plt Count 586 H MPV 8.2 Neut % (Auto) 79.8 H Lymph % (Auto) 10.0 L [place] % (Auto) 5.6 Eos % (Auto) 2.8 Baso % (Auto) 1.8 Neut # 12.3 H Lymph # 1.6 [place] # 0.9 H Eos # 0.4 Baso # 0.3 H Neutrophils % (Manual) 53 Band Neutrophils % 17 H* Lymphocytes % (Manual) 12 L Monocytes % (Manual) 3 Eosinophils % (Manual) 7 H Metamyelocytes % 2 H Myelocytes % 6 H Differential Comment Cancelled Platelet Estimate Increased H Large Platelets Present Polychromasia Slight Hypochromasia (manual) Slight Poikilocytosis (manual Slight Anisocytosis (manual) Slight Microcytosis (manual) Slight Macrocytosis (manual) Slight Target Cells Slight Tear Drop Cells Slight Ovalocytes Slight [place] Cells Slight Schistocytes Sodium 137 Potassium 4.1 Chloride 105 Carbon Dioxide 24 Anion Gap 12 BUN 16 Creatinine 0.6 L Est GFR ( Amer) > 60 Est GFR (Non-Af Amer) > 60 Random Glucose 90 Calcium 7.7 L Total Bilirubin 0.5 AST 23 ALT 22 Alkaline Phosphatase 79 Total Protein 6.0 L Albumin 2.6 L Globulin 3.3 Albumin/Globulin Ratio 0.8 L Urine Color Urine Clarity Urine pH Ur Specific [place] Urine Protein Urine Glucose (UA) Urine Ketones Urine Blood Urine Nitrate Urine Bilirubin Urine Urobilinogen Ur Leukocyte Esterase Urine WBC (Auto) Urine RBC (Auto) Ur Squamous Epith Cells Amorphous Sediment Assessment & Plan (1) Back pain Status: Acute (2) Frequent falls Status: Acute (3) Generalized weakness Status: Acute - Assessment and Plan (Free Text) Plan: R/O SEPSIS
--- NOTE | 2017-03-21 13:48 | CP.PCM.PN ---
Subjective - Date & Time of Evaluation Date of Evaluation: 03/21/17 Time of Evaluation: 13:45 - Subjective Subjective: W[employer]OWS [employer] NOTES CC- RN called to see patient c/o blurred vision . HPI- 86 yr old male admitted to the floor with neck , and back pain and bandemia after sustained a fall at home Patient seen an d examined at bedside , c/o blurred vision an d some times double vision, since the fall , blurred vision comes and go , and not persistent all times . blurred vision occur when he stared an object or person . CT head done on admission - No acute intracranial pathology identified. Small scalp hematoma at the vertex. Generalized atrophy. Nonspecific white matter changes. will order an MRI brain without contrast also inform Dr. Rich Objective - Vital Signs/Intake and Output Vital Signs (last 24 hours): Temp Pulse Resp BP Pulse Ox 99.0 F 78 20 132/72 95 03/21/17 08:14 03/21/17 08:14 03/21/17 08:14 03/21/17 08:14 03/21/17 08:14 Intake and Output: 03/21/17 03/21/17 06:59 18:59 Intake Total 490 Balance 490 - Medications Medications: Current Medications Acetaminophen (Tylenol 325mg Tab) 650 mg PO Q6 PRN PRN Reason: Fever >100.4 F Last Admin: 03/20/17 18:12 Dose: 650 mg Enoxaparin Sodium (Lovenox) 40 mg SC DAILY [facility] Last Admin: 03/21/17 09:52 Dose: 40 mg Hydromorphone HCl (Dilaudid) 1 mg IVP Q6H PRN PRN Reason: Pain, moderate (4-7) Cefepime HCl 1 gm/ Dextrose 50 mls @ 100 mls/hr IVPB Q12H [facility] Last Admin: 03/21/17 06:01 Dose: 100 mls/hr Pantoprazole Sodium (Protonix Ec Tab) 40 mg PO DAILY [facility] Last Admin: 03/21/17 09:53 Dose: 40 mg - Labs Labs: 03/21/17 07:28 03/21/17 07:28 PT 16.2 SECONDS (9.7-12.2) H 03/17/17 11:31 INR 1.4 03/17/17 11:31 APTT 29 SECONDS (21-34) 03/17/17 11:31
--- NOTE | 2017-03-21 14:12 | MRI ---
PROCEDURE: MR LUMBAR SPINE WITHOUT CONTRAST HISTORY: Fx L2 on xray COMPARISON: Lumbar spine radiographs 03/17/2017. TECHNIQUE: Multiecho multiplanar sequences were performed through the lumbar spine without the use of intravenous contrast. FINDINGS: Normal lumbar curvature is preserved. A chronic compression fracture of L2 is unchanged as well. Marrow signal appears if quite dark diffusely which may reflect hematopoietic disorder. Clinically correlate. Inhomogeneous marrow signal changes are bright on T2 but dark with TE T1 weighting and are nonspecific with metastatic changes not excluded however. Consider follow-up nuclear bone scan for additional characterization. Conus medullaris appears normal terminating at the T12-L1 disc interspace level. Diffuse disc desiccation identified throughout with moderate height loss identified at L4-5. Trace fluid is seen at the upper portion of the L2-3 disc interspace level but may actually be within the vertebral body rather than the disc interspace due to cortical margin felt to be inferior to it. This may be fracture related. Prevertebral and paraspinal soft tissues appear diffusely unremarkable. T12-L1: Motion artifacts degrade this level superiorly. No definitive disc herniation or central canal stenosis appreciable. L1-2: Central canal appears widely patent at this level as well but is artifacted by gross motion. L2-3: A generalized disc bulge is appreciate without disc herniation inverting the ventral thecal sac without causing prominent central canal stenosis. Motion artifacts degrade this level. L3-4: An additional generalized disc bulge is appreciate without disc herniation inverting the anterior band of the ventral thecal sac. Facet arthropathy contributes to this pattern causing encroaching the bilateral lateral recesses, right greater than left. No definite disc herniation. Borderline bilateral neural foraminal stenosis. L4-5: A generalized disc bulge appreciate with asymmetric a prominent facet arthropathy causing mild central stenosis slightly greater the right than left sides. Mild bilateral neural foraminal stenosis is appreciated without definite disc herniation. L5-S1: Prominent facet arthropathy is appreciated with limited disc bulging but no significant stenosis appears to result of the central canal or bilateral neural foramina. No disc herniation is apparent. OTHER FINDINGS: None. IMPRESSION: 1. Motion artifacts degrade the upper and mid lumbar levels with a chronic compression fracture of L2 appreciated with associated fluid at the inferior margins of the vertebral body which may be on a chronic basis. No definite prevertebral edema. Discitis is not favored over is difficult to fully exclude at the L2-3 disc interspace superiorly. 2. 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 No definitive disc herniation throughout the exam. 3. Abnormal marrow signal changes are appreciated suspicious for both potential hematopoietic disorder including anemia, but also for potential metastatic disease. Please see discussion above. Consider follow-up nuclear bone scan as well as additional clinical correlation.
--- NOTE | 2017-03-21 16:37 | MRI ---
PROCEDURE: MRI BRAIN WITHOUT CONTRAST HISTORY: c/o blurred vision COMPARISON: None. TECHNIQUE: Multiplanar, multisequence MR images of the brain were obtained without intravenous contrast enhancement. FINDINGS: HEMORRHAGE: None DWI: No evidence of an acute or early subacute infarction. BRAIN PARENCHYMA: No mass effect or edema. There is extensive atrophy as well as mild chronic periventricular white matter ischemic disease. VENTRICLES: Unremarkable. No hydrocephalus. CRANIUM: Unremarkable. ORBITS: Grossly unremarkable. PARANASAL SINUSES/MASTOIDS: Mild bilateral mastoid air cell opacification. VASCULAR SYSTEM: Skull base flow voids intact. OTHER FINDINGS: None. 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
--- NOTE | 2017-03-21 20:09 | CP.PCM.PN ---
Subjective - Date & Time of Evaluation Date of Evaluation: 03/21/17 Time of Evaluation: 08:00 - Subjective Subjective: clinically same Objective - Vital Signs/Intake and Output Vital Signs (last 24 hours): Temp Pulse Resp BP Pulse Ox 100.9 F H 94 H 20 129/64 94 L 03/21/17 15:36 03/21/17 15:00 03/21/17 15:00 03/21/17 15:00 03/21/17 15:00 Intake and Output: 03/21/17 03/22/17 18:59 06:59 Intake Total 350 Balance 350 - Medications Medications: Current Medications Acetaminophen (Tylenol 325mg Tab) 650 mg PO Q6 PRN PRN Reason: Fever >100.4 F Last Admin: 03/21/17 15:36 Dose: 650 mg Enoxaparin Sodium (Lovenox) 40 mg SC DAILY [facility] Last Admin: 03/21/17 09:52 Dose: 40 mg Hydromorphone HCl (Dilaudid) 1 mg IVP Q6H PRN PRN Reason: Pain, moderate (4-7) Cefepime HCl 1 gm/ Dextrose 50 mls @ 100 mls/hr IVPB Q12H [facility] Last Admin: 03/21/17 18:00 Dose: 100 mls/hr Pantoprazole Sodium (Protonix Ec Tab) 40 mg PO DAILY [facility] Last Admin: 03/21/17 09:53 Dose: 40 mg - Labs Labs: 03/21/17 07:28 03/21/17 07:28 PT 16.2 SECONDS (9.7-12.2) H 03/17/17 11:31 INR 1.4 03/17/17 11:31 APTT 29 SECONDS (21-34) 03/17/17 11:31 - Constitutional Appears: Well - Head Exam Head Exam: ATRAUMATIC, NORMAL INSPECTION, NORMOCEPHALIC - Eye Exam Eye Exam: EOMI, Normal appearance, PERRL Pupil Exam: NORMAL ACCOMODATION, PERRL - ENT Exam ENT Exam: Mucous Membranes Moist, Normal Exam - Neck Exam Neck Exam: Full ROM, Normal Inspection. absent: Lymphadenopathy - Respiratory Exam Respiratory Exam: Decreased Breath Sounds - Cardiovascular Exam Cardiovascular Exam: REGULAR RHYTHM, +S1, +S2 - GI/Abdominal Exam GI & Abdominal Exam: Soft, Diminished Bowel Sounds - Rectal Exam Rectal Exam: Deferred
--- NOTE | 2017-03-22 07:29 | CP.PCM.PN ---
Subjective - Date & Time of Evaluation Date of Evaluation: 03/22/17 Time of Evaluation: 07:27 - Subjective Subjective: PATEINT SEEN DICTATED PROGRESS NOTES HIS SYMPTOMS SEEMS TO BE OCULAR CAUSE POST TRAUMATIC LUMBAR PAIN NEUROPATHY Rx GABAPENTTIN ASA PT DVT PROPHYLAXIS Objective - Vital Signs/Intake and Output Vital Signs (last 24 hours): Temp Pulse Resp BP Pulse Ox 98.6 F 71 20 135/68 97 03/21/17 23:56 03/21/17 23:56 03/21/17 23:56 03/21/17 23:56 03/21/17 23:56 Intake and Output: 03/22/17 03/22/17 06:59 18:59 Intake Total 590 Output Total 100 Balance 490 - Medications Medications: Current Medications Acetaminophen (Tylenol 325mg Tab) 650 mg PO Q6 PRN PRN Reason: Fever >100.4 F Last Admin: 03/21/17 15:36 Dose: 650 mg Enoxaparin Sodium (Lovenox) 40 mg SC DAILY [facility] Last Admin: 03/21/17 09:52 Dose: 40 mg Hydromorphone HCl (Dilaudid) 1 mg IVP Q6H PRN PRN Reason: Pain, moderate (4-7) Cefepime HCl 1 gm/ Dextrose 50 mls @ 100 mls/hr IVPB Q12H [facility] Last Admin: 03/22/17 06:04 Dose: 100 mls/hr Pantoprazole Sodium (Protonix Ec Tab) 40 mg PO DAILY [facility] Last Admin: 03/21/17 09:53 Dose: 40 mg - Labs Labs: 03/21/17 07:28 03/21/17 07:28 PT 16.2 SECONDS (9.7-12.2) H 03/17/17 11:31 INR 1.4 03/17/17 11:31 APTT 29 SECONDS (21-34) 03/17/17 11:31
[2017-03-22] MEDS: Enoxaparin 40 mg Syringe SC SCH (09:57)
[2017-03-22] MEDS: Pantoprazole 40 mg EC Tab PO SCH (09:58)
--- NOTE | 2017-03-22 10:12 | CP.PCM.PN ---
Subjective - Date & Time of Evaluation Date of Evaluation: 03/22/17 Time of Evaluation: 10:10 - Subjective Subjective: SPINE MRI reviewed. No acute fx noted. Rec mobilize pt w PT as tolerated. Will see pt again as needed. Thanks. Objective - Vital Signs/Intake and Output Vital Signs (last 24 hours): Temp Pulse Resp BP Pulse Ox 98.1 F 83 20 123/67 96 03/22/17 07:00 03/22/17 07:00 03/22/17 07:00 03/22/17 07:00 03/22/17 07:00 Intake and Output: 03/22/17 03/22/17 06:59 18:59 Intake Total 590 Output Total 100 Balance 490 - Medications Medications: Current Medications Acetaminophen (Tylenol 325mg Tab) 650 mg PO Q6 PRN PRN Reason: Fever >100.4 F Last Admin: 03/21/17 15:36 Dose: 650 mg Aspirin (Ecotrin) 81 mg PO DAILY [facility] Last Admin: 03/22/17 09:57 Dose: 81 mg Enoxaparin Sodium (Lovenox) 40 mg SC DAILY [facility] Last Admin: 03/22/17 09:57 Dose: 40 mg Gabapentin (Neurontin) 300 mg PO BID [facility] Last Admin: 03/22/17 09:58 Dose: 300 mg Hydromorphone HCl (Dilaudid) 1 mg IVP Q6H PRN PRN Reason: Pain, moderate (4-7) Cefepime HCl 1 gm/ Dextrose 50 mls @ 100 mls/hr IVPB Q12H [facility] Last Admin: 03/22/17 06:04 Dose: 100 mls/hr Pantoprazole Sodium (Protonix Ec Tab) 40 mg PO DAILY [facility] Last Admin: 03/22/17 09:58 Dose: 40 mg - Labs Labs: 03/21/17 07:28 03/21/17 07:28 PT 16.2 SECONDS (9.7-12.2) H 03/17/17 11:31 INR 1.4 03/17/17 11:31 APTT 29 SECONDS (21-34) 03/17/17 11:31
--- NOTE | 2017-03-22 10:44 | PN ---
NEUROLOGICAL FOLLOWUP EVALUATION DATE OF EVALUATION: 03/22/2017 TIME OF EVALUATION: 7:05 a.m. NEUROLOGIC PROBLEM: Episodic double vision and lower back pain. PHYSICAL EXAMINATION: VITAL SIGNS: Blood pressure of 135/68, mean arterial pressure of 90, respiratory rate of 20, temperature of 98.6, and pulse rate of 71 and regular. NEUROLOGIC: The patient did have episodic double vision that he can describe as two images, the one in front of the other, tried to reach the first image, he thinks the original one, which is not there he has to go further to catch that real image. This has been going episodically. It is stayed for a few seconds and then disappear on moving his eyes and closing his eyes with blinking. These symptoms not associating with a headache, visual or bulbar dysfunction. No history of focal weakness. However, he is admitting lower back pain and foot pain right more than his left side. This is from his falls. No bowel or bladder incontinence. Examination of ocular moments normal. No nystagmus. No facial asymmetry. Bulbar function are normal. He could able to lift both upper extremities good. Strength is normal in upper extremities. Left leg is externally rotated. Still he could able to lift his both lower extremities against gravity. Deep tendon reflexes are absent. Plantars are downgoing. Some subjective posterior bulbar dysfunction on his left side to compare with the right side. WORKUP: MRI of the brain reviewed, there is significant atrophy more than for his age. There is no acute ischemic process except some periventricular ischemic changes from his small vessel disease. CONCLUSION: 1. 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 The patient also suffering from peripheral neuropathy. The patient can be on antiplatelets; however, his ocular problem I do not think is a neurological issue. It is probably related to his ocular issues, probably definitely he needs ophthalmology examination that can be done as an outpatient. 2. For his pain, gabapentin can be titrated to reach the maximum level to titrate his pain. The patient should be out of the bed. Deep venous thrombosis prophylaxis should be continued. Tucker Rich MD
--- NOTE | 2017-03-22 13:17 | VASCLAB ---
PROCEDURE: Lower Extremity Venous Duplex Exam. HISTORY: DVT PRIORS: None. TECHNIQUE: Bilateral common femoral, femoral, popliteal and posterior tibial, peroneal and great saphenous veins were evaluated. Flow was assessed with color Doppler, compressibility, assessment of phasic flow and augmentation response. Report prepared by DANNY Quiroga, RVT FINDINGS: RIGHT: 1. Common Femoral Vein: 1.1. Compressibility - Fully compressible: Thrombus - None : Flow - Phasic: Augmentation -Normal: Reflux - None. 2. Femoral Vein: 2.1. Compressibility - Fully compressible: Thrombus - None : Flow - Phasic: Augmentation -Normal: Reflux - None. 3. Popliteal Vein: 3.1. Compressibility - Fully compressible: Thrombus - None : Flow - Phasic: Augmentation -Normal: Reflux - None. 4. Posterior Tibial Vein: 4.1. Compressibility - Fully compressible: Thrombus - None: Flow - Phasic: Augmentation -Normal: Reflux - None. 5. Peroneal Vein: 5.1. Compressibility - Fully compressible: Thrombus - None: Flow - Phasic: Augmentation -Normal: Reflux - None. 6. Great Saphenous Vein: 6.1. Compressibility - Fully compressible: Thrombus - None: Flow - Phasic: Augmentation - Normal: Reflux - None. LEFT: 1. Common Femoral Vein: 1.1. Compressibility - Fully compressible: Thrombus - None: Flow - Phasic: Augmentation -Normal: Reflux - None. 2. Femoral Vein: 2.1. Compressibility - Fully compressible: Thrombus - None: Flow - Phasic: Augmentation -Normal: Reflux - None. 3. Popliteal Vein: 3.1. Compressibility - Fully compressible: Thrombus - None : Flow - Phasic: Augmentation -Normal: Reflux - None. 4. Posterior Tibial Vein: 4.1. Compressibility - Fully compressible: Thrombus - None: Flow - Phasic: Augmentation -Normal: Reflux - None. 5. Peroneal Vein: 5.1. Compressibility - Fully compressible: Thrombus - None: Flow - Phasic: Augmentation -Normal: Reflux - None. 6. Great Saphenous Vein: 6.1. Compressibility - Fully compressible: Thrombus - None: Flow - Phasic: Augmentation - Normal: Reflux - None. OTHER FINDINGS: Right: None significant. Left: None significant. IMPRESSION: Right: No evidence of deep or superficial vein thrombosis of the right lower extremity. Normal valve function noted of the right side. Left: No evidence of deep or superficial vein thrombosis of the left lower extremity. Normal valve function noted of the left side.
--- NOTE | 2017-03-22 16:53 | CP.PCM.PN ---
Subjective - Date & Time of Evaluation Date of Evaluation: 03/22/17 Time of Evaluation: 07:00 - Subjective Subjective: ID consulted for fever septic work up neg thus far IV rx ordered Objective - Vital Signs/Intake and Output Vital Signs (last 24 hours): Temp Pulse Resp BP Pulse Ox 98.7 F 84 20 120/66 97 03/22/17 16:00 03/22/17 16:00 03/22/17 16:00 03/22/17 16:00 03/22/17 16:00 Intake and Output: 03/22/17 03/22/17 06:59 18:59 Intake Total 590 500 Output Total 100 1200 Balance 490 -700 - Medications Medications: Current Medications Acetaminophen (Tylenol 325mg Tab) 650 mg PO Q6 PRN PRN Reason: Fever >100.4 F Last Admin: 03/21/17 15:36 Dose: 650 mg Aspirin (Ecotrin) 81 mg PO DAILY [facility] Last Admin: 03/22/17 09:57 Dose: 81 mg Enoxaparin Sodium (Lovenox) 40 mg SC DAILY [facility] Last Admin: 03/22/17 09:57 Dose: 40 mg Gabapentin (Neurontin) 300 mg PO BID [facility] Last Admin: 03/22/17 09:58 Dose: 300 mg Hydromorphone HCl (Dilaudid) 1 mg IVP Q6H PRN PRN Reason: Pain, moderate (4-7) Cefepime HCl 1 gm/ Dextrose 50 mls @ 100 mls/hr IVPB Q12H [facility] Last Admin: 03/22/17 06:04 Dose: 100 mls/hr Pantoprazole Sodium (Protonix Ec Tab) 40 mg PO DAILY [facility] Last Admin: 03/22/17 09:58 Dose: 40 mg - Labs Labs: 03/21/17 07:28 03/21/17 07:28 PT 16.2 SECONDS (9.7-12.2) H 03/17/17 11:31 INR 1.4 03/17/17 11:31 APTT 29 SECONDS (21-34) 03/17/17 11:31 - Constitutional Appears: Non-toxic, Chronically Ill - Head Exam Head Exam: NORMOCEPHALIC - Eye Exam Eye Exam: PERRL. absent: Scleral icterus - ENT Exam ENT Exam: Mucous Membranes Dry - Neck Exam Neck Exam: absent: Lymphadenopathy - Respiratory Exam Respiratory Exam: Decreased Breath Sounds - Cardiovascular Exam Cardiovascular Exam: REGULAR RHYTHM - GI/Abdominal Exam GI & Abdominal Exam: Distended, Soft. absent: Tenderness - Rectal Exam Rectal Exam: Deferred - Exam Exam: NORMAL INSPECTION - Extremities Exam Extremities Exam: absent: Calf Tenderness, Tenderness - Back Exam Back Exam: absent: CVA tenderness (L), CVA tenderness (R) Assessment and Plan (1) Back pain Status: Acute (2) Back pain Status: Acute (3) Back pain at L4-L5 level Status: Acute (4) Back pain at L4-L5 level Status: Acute (5) Bandemia Status: Acute (6) Frequent falls Status: Acute (7) Generalized weakness Status: Acute - Assessment and Plan (Free Text) Assessment: AWAIT CULTURES
--- NOTE | 2017-03-22 18:49 | CP.PCM.PN ---
Subjective - Date & Time of Evaluation Date of Evaluation: 03/22/17 Time of Evaluation: 08:00 - Subjective Subjective: clinically same Objective - Vital Signs/Intake and Output Vital Signs (last 24 hours): Temp Pulse Resp BP Pulse Ox 98.7 F 84 20 120/66 97 03/22/17 16:00 03/22/17 16:00 03/22/17 16:00 03/22/17 16:00 03/22/17 16:00 Intake and Output: 03/22/17 03/22/17 06:59 18:59 Intake Total 590 500 Output Total 100 1200 Balance 490 -700 - Medications Medications: Current Medications Acetaminophen (Tylenol 325mg Tab) 650 mg PO Q6 PRN PRN Reason: Fever >100.4 F Last Admin: 03/21/17 15:36 Dose: 650 mg Aspirin (Ecotrin) 81 mg PO DAILY [facility] Last Admin: 03/22/17 09:57 Dose: 81 mg Enoxaparin Sodium (Lovenox) 40 mg SC DAILY [facility] Last Admin: 03/22/17 09:57 Dose: 40 mg Gabapentin (Neurontin) 300 mg PO BID [facility] Last Admin: 03/22/17 17:49 Dose: 300 mg Hydromorphone HCl (Dilaudid) 1 mg IVP Q6H PRN PRN Reason: Pain, moderate (4-7) Cefepime HCl 1 gm/ Dextrose 50 mls @ 100 mls/hr IVPB Q12H [facility] Last Admin: 03/22/17 06:04 Dose: 100 mls/hr Pantoprazole Sodium (Protonix Ec Tab) 40 mg PO DAILY [facility] Last Admin: 03/22/17 09:58 Dose: 40 mg - Labs Labs: 03/21/17 07:28 03/21/17 07:28 PT 16.2 SECONDS (9.7-12.2) H 03/17/17 11:31 INR 1.4 03/17/17 11:31 APTT 29 SECONDS (21-34) 03/17/17 11:31 - Constitutional Appears: Well - Head Exam Head Exam: ATRAUMATIC, NORMAL INSPECTION, NORMOCEPHALIC - Eye Exam Eye Exam: EOMI, Normal appearance, PERRL Pupil Exam: NORMAL ACCOMODATION, PERRL - ENT Exam ENT Exam: Mucous Membranes Moist, Normal Exam - Neck Exam Neck Exam: Full ROM, Normal Inspection. absent: Lymphadenopathy - Respiratory Exam Respiratory Exam: Decreased Breath Sounds - Cardiovascular Exam Cardiovascular Exam: REGULAR RHYTHM, +S1, +S2 - GI/Abdominal Exam GI & Abdominal Exam: Soft, Diminished Bowel Sounds - Rectal Exam Rectal Exam: Deferred
[2017-03-23 08:25] LABS: BASO # 0.3 K/uL (0.0-0.2); BASO % 1.9 % (0.0-2.0); EOS # 0.7 K/uL (0.0-0.7); EOS % 3.8 % (0.0-4.0); HEMATOCRIT 26.5 % (35.0-51.0); LYMPH # 1.9 K/uL (1.0-4.3); LYMPH % 11.1 % (20.0-40.0); MEAN CELL VOLUME 76.5 fL (80.0-94.0); MEAN CORPUSCULAR HEMOGLOBIN 23.8 pg (27.0-31.0); MEAN CORPUSCULAR HGB CONC 31.1 g/dL (33.0-37.0); MEAN PLATELET VOLUME 8.3 fL (7.2-11.7); MONO # 0.9 K/uL (0.0-0.8); MONO % 5.2 % (0.0-10.0); NRBC % 0.1 % (0.0-2.0); PLATELET COUNT 641 K/uL (130-400); WHITE BLOOD COUNT 17.4 K/uL (4.8-10.8)
[2017-03-23 08:46] LABS: CHLORIDE 104 mmol/L (98-107); SODIUM 138 mmol/L (132-148)
[2017-03-23 08:49] LABS: ALB/GLOB RATIO 0.8 (1.0-2.1); ALKALINE PHOSPHATASE 91 U/L (38-126); ALT/SGPT 26 U/L (21-72); AST/SGOT 27 U/L (17-59); BILIRUBIN,TOTAL 0.5 mg/dL (0.2-1.3); BLOOD UREA NITROGEN 17 mg/dL (9-20); CALCIUM 8.1 mg/dl (8.6-10.4); CARBON DIOXIDE 24 mmol/L (22-30); GFR AFRICAN-AMERICAN > 60; GLUCOSE,RANDOM 95 mg/dL (75-110); TOTAL PROTEIN 6.6 g/dL (6.3-8.3)
[2017-03-23] MEDS: Pantoprazole 40 mg EC Tab PO SCH (09:36)
[2017-03-23] MEDS: Enoxaparin 40 mg Syringe SC SCH (09:36)
[2017-03-23 12:04] LABS: EOSINOPHIL 3 % (0-4); METAMYELOCYTE 6 % (0-0); MYELOCYTE 14 % (0-0); NEUTROPHIL 42 % (50-75); TOTAL CELLS COUNTED 100
[2017-03-23 12:05] LABS: LARGE PLATELETS PRESENT
--- NOTE | 2017-03-23 18:25 | CP.PCM.PN ---
Subjective - Date & Time of Evaluation Date of Evaluation: 03/23/17 Time of Evaluation: 07:00 - Subjective Subjective: wbc elevated r/o malignancy Objective - Vital Signs/Intake and Output Vital Signs (last 24 hours): Temp Pulse Resp BP Pulse Ox 99.4 F 86 20 119/61 96 03/23/17 16:00 03/23/17 16:00 03/23/17 16:00 03/23/17 16:00 03/23/17 16:00 Intake and Output: 03/23/17 03/23/17 06:59 18:59 Intake Total 290 600 Output Total 400 Balance -110 600 - Medications Medications: Current Medications Acetaminophen (Tylenol 325mg Tab) 650 mg PO Q6 PRN PRN Reason: Fever >100.4 F Last Admin: 03/21/17 15:36 Dose: 650 mg Aspirin (Ecotrin) 81 mg PO DAILY [facility] Last Admin: 03/23/17 09:36 Dose: 81 mg Enoxaparin Sodium (Lovenox) 40 mg SC DAILY [facility] Last Admin: 03/23/17 09:36 Dose: 40 mg Gabapentin (Neurontin) 300 mg PO BID [facility] Last Admin: 03/23/17 18:07 Dose: 300 mg Hydromorphone HCl (Dilaudid) 1 mg IVP Q6H PRN PRN Reason: Pain, moderate (4-7) Cefepime HCl 1 gm/ Dextrose 50 mls @ 100 mls/hr IVPB Q12H [facility] Last Admin: 03/23/17 06:07 Dose: 100 mls/hr Pantoprazole Sodium (Protonix Ec Tab) 40 mg PO DAILY [facility] Last Admin: 03/23/17 09:36 Dose: 40 mg - Labs Labs: 03/23/17 08:17 03/23/17 08:17 PT 16.2 SECONDS (9.7-12.2) H 03/17/17 11:31 INR 1.4 03/17/17 11:31 APTT 29 SECONDS (21-34) 03/17/17 11:31 - Constitutional Appears: Non-toxic, Cachectic, Chronically Ill - Head Exam Head Exam: NORMOCEPHALIC - Eye Exam Eye Exam: PERRL. absent: Scleral icterus - ENT Exam ENT Exam: Mucous Membranes Dry, Normal External Ear Exam - Neck Exam Neck Exam: absent: Lymphadenopathy - Respiratory Exam Respiratory Exam: Decreased Breath Sounds - Cardiovascular Exam Cardiovascular Exam: REGULAR RHYTHM - GI/Abdominal Exam GI & Abdominal Exam: Distended, Soft - Rectal Exam Rectal Exam: Deferred - Exam Exam: NORMAL INSPECTION - Extremities Exam Extremities Exam: absent: Pedal Edema - Back Exam Back Exam: absent: CVA tenderness (L), CVA tenderness (R) Assessment and Plan (1) Back pain Status: Acute (2) Frequent falls Status: Acute (3) Generalized weakness Status: Acute - Assessment and Plan (Free Text) Assessment: recc heme onc eval
--- NOTE | 2017-03-23 20:06 | CP.PCM.PN ---
Subjective - Date & Time of Evaluation Date of Evaluation: 03/23/17 Time of Evaluation: 08:00 - Subjective Subjective: clinically same Objective - Vital Signs/Intake and Output Vital Signs (last 24 hours): Temp Pulse Resp BP Pulse Ox 99.4 F 86 20 119/61 96 03/23/17 16:00 03/23/17 16:00 03/23/17 16:00 03/23/17 16:00 03/23/17 16:00 Intake and Output: 03/23/17 03/24/17 18:59 06:59 Intake Total 600 Balance 600 - Medications Medications: Current Medications Acetaminophen (Tylenol 325mg Tab) 650 mg PO Q6 PRN PRN Reason: Fever >100.4 F Last Admin: 03/21/17 15:36 Dose: 650 mg Aspirin (Ecotrin) 81 mg PO DAILY [facility] Last Admin: 03/23/17 09:36 Dose: 81 mg Enoxaparin Sodium (Lovenox) 40 mg SC DAILY [facility] Last Admin: 03/23/17 09:36 Dose: 40 mg Gabapentin (Neurontin) 300 mg PO BID [facility] Last Admin: 03/23/17 18:07 Dose: 300 mg Hydromorphone HCl (Dilaudid) 1 mg IVP Q6H PRN PRN Reason: Pain, moderate (4-7) Cefepime HCl 1 gm/ Dextrose 50 mls @ 100 mls/hr IVPB Q12H [facility] Last Admin: 03/23/17 19:45 Dose: 100 mls/hr Pantoprazole Sodium (Protonix Ec Tab) 40 mg PO DAILY [facility] Last Admin: 03/23/17 09:36 Dose: 40 mg - Labs Labs: 03/23/17 08:17 03/23/17 08:17 PT 16.2 SECONDS (9.7-12.2) H 03/17/17 11:31 INR 1.4 03/17/17 11:31 APTT 29 SECONDS (21-34) 03/17/17 11:31
[2017-03-23 20:34] LABS: IMMUNOGLOBULIN G 1244.7 mg/dL (700.0-1600.0); IMMUNOGLOBULIN M 33.4 mg/dL (40.0-230.0)
[2017-03-23 20:35] LABS: IMMUNOGLOBULIN A 132.5 mg/dL (70.0-400.0)
[2017-03-23 23:35] VITALS: TEMP 98.9
[2017-03-24 07:26] VITALS: BP 117/67; PULSE 77; O2SAT 96
[2017-03-24 08:14] LABS: BASO # 0.4 K/uL (0.0-0.2); BASO % 2.1 % (0.0-2.0); EOS # 0.8 K/uL (0.0-0.7); EOS % 4.5 % (0.0-4.0); LYMPH # 1.9 K/uL (1.0-4.3); MEAN CELL VOLUME 74.6 fL (80.0-94.0); MEAN CORPUSCULAR HEMOGLOBIN 24.7 pg (27.0-31.0); MEAN CORPUSCULAR HGB CONC 33.1 g/dL (33.0-37.0); MEAN PLATELET VOLUME 8.2 fL (7.2-11.7); MONO # 0.9 K/uL (0.0-0.8); MONO % 5.3 % (0.0-10.0); RED CELL DISTRIBUTION WIDTH 20.7 % (11.5-14.5); WHITE BLOOD COUNT 17.2 K/uL (4.8-10.8)
--- NOTE | 2017-03-24 09:18 | PN ---
DATE: 03/24/2017 NEUROLOGIC PROBLEM: Frequent falls. Lumbosacral disc disease. PHYSICAL EXAMINATION: VITAL SIGNS: Blood pressure 121/61, mean arterial pressure of 81, respiratory rate 16, temperature 98.9 degrees Fahrenheit, pulse rate 81 and regular. The patient is more awake, alert, seems to be depressed and also complaining of feet pain. She does not feel any improvement on gabapentin dose. No other side effect is noted. The patient is medically cleared to rehab. The patient is also getting bedside physical therapy at present. RECOMMENDATION: Gabapentin dose can be increased to 3 times a day and the patient's physical therapy should be started in getting her out of bed. If possible, following discharge the patient can be benefited on seeing me as an outpatient to assess his neuropathy and the lumbosacral disc disease to further extent to improve his ambulation. The patient will be signing off from followup. Please consider to call me back if needed. Tucker Rich MD
[2017-03-24] MEDS: Enoxaparin 40 mg Syringe SC SCH (09:46)
[2017-03-24] MEDS: Pantoprazole 40 mg EC Tab PO SCH (09:46)
[2017-03-24] MEDS ORDERED: Oxycodone/Acetaminophen 5/325 mg Tab PO PRN (09:59)
--- NOTE | 2017-03-24 11:30 | CP.PCM.PN ---
Subjective - Date & Time of Evaluation Date of Evaluation: 03/24/17 Time of Evaluation: 08:00 - Subjective Subjective: PGY2 Resident - Medicine Progress Note Patient seen and examined at bedside. No overnight events per nursing. Patient is AAO x3, reports +BM yesterday, and is asking to leave. He says she is ready to go to rehab. He reports mild lumbar back pain. --- Patient is table for discharge to rehab per Dr. Shanique Rodriguez. Started on fentanyl patch and percocet for pain as per DR Shanique Rodriguez. Plan to discharge to [facility]. Seen by DR Jones, labs done to rule out malignancy. Will follow up by him. Continued on maxipime 1gm iv q12h x 5 days more. Patient was cleared by neuro surgeon for physical therapy participation. Objective - Vital Signs/Intake and Output Vital Signs (last 24 hours): Temp Pulse Resp BP Pulse Ox 98.9 F 77 20 117/67 96 03/24/17 07:00 03/24/17 07:00 03/24/17 07:00 03/24/17 07:00 03/24/17 07:00 - Medications Medications: Current Medications Acetaminophen (Tylenol 325mg Tab) 650 mg PO Q6 PRN PRN Reason: Fever >100.4 F Last Admin: 03/21/17 15:36 Dose: 650 mg Aspirin (Ecotrin) 81 mg PO DAILY [facility] Last Admin: 03/24/17 09:46 Dose: 81 mg Enoxaparin Sodium (Lovenox) 40 mg SC DAILY [facility] Last Admin: 03/24/17 09:46 Dose: 40 mg Fentanyl (Duragesic) 1 patch TD Q72H [facility] Last Admin: 03/24/17 09:50 Dose: 1 patch Gabapentin (Neurontin) 300 mg PO TID [facility] Last Admin: 03/24/17 09:46 Dose: 300 mg Cefepime HCl 1 gm/ Dextrose 50 mls @ 100 mls/hr IVPB Q12H [facility] Last Admin: 03/24/17 06:01 Dose: 100 mls/hr Oxycodone/Acetaminophen (Percocet 5/325 Mg Tab) 1 tab PO Q4H PRN PRN Reason: Pain, severe (8-10) Stop: 03/27/17 10:00 Last Admin: 03/24/17 10:59 Dose: 1 tab Pantoprazole Sodium (Protonix Ec Tab) 40 mg PO DAILY [facility] Last Admin: 03/24/17 09:46 Dose: 40 mg - Labs Labs: 03/24/17 08:02 03/23/17 08:17 PT 16.2 SECONDS (9.7-12.2) H 03/17/17 11:31 INR 1.4 03/17/17 11:31 APTT 29 SECONDS (21-34) 03/17/17 11:31 - Additional Findings Additional findings: - Constitutional Appears: Non-toxic, Cachectic, Chronically Ill - Head Exam Head Exam: NORMOCEPHALIC - Eye Exam Eye Exam: PERRL. absent: Scleral icterus - ENT Exam ENT Exam: Mucous Membranes Dry, Normal External Ear Exam - Neck Exam Neck Exam: absent: Lymphadenopathy - Respiratory Exam Respiratory Exam: Decreased Breath Sounds - Cardiovascular Exam Cardiovascular Exam: REGULAR RHYTHM - GI/Abdominal Exam GI & Abdominal Exam: Distended, Soft - Exam Exam: NORMAL INSPECTION - Extremities Exam Extremities Exam: absent: Pedal Edema - Back Exam Back Exam: absent: CVA tenderness (L), CVA tenderness (R) Assessment and Plan - Assessment and Plan (Free Text) Assessment: Back pain Status: Acute 03/24: pt seen by spine consult - MRI reviewed. No acute fx noted. Rec mobilize pt w PT as tolerated. will be discharged to rehab. Percocet 5/325 Mg Tab) 1 tab PO Q4H PRN Tylenol 325mg Tab) 650 mg PO Q6 PRN Fentanyl (Duragesic) 1 patch TD Q72H [facility] Spine consult, Dr. Galarza, f/u recs - Pt needs MRI to assess age of fx and possible need for bracing. Lumbar spine MRI - 1. chronic compression fracture of L2 appreciated with associated fluid at the inferior margins of the vertebral body which may be on a chronic basis. No definite prevertebral edema. Discitis is not favored over is difficult to fully exclude at the L2-3 disc interspace superiorly. 2. 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 No definitive disc herniation throughout the exam. 3. Abnormal marrow signal changes are appreciated suspicious for both potential hematopoietic disorder including anemia, but also for potential metastatic disease. Consider follow-up nuclear bone scan as well as additional clinical correlation. see full report. Brain MRI - Extensive atrophy and mild chronic periventricular white matter ischemic disease. see full report. Frequent falls / Blurry Vision Status: Acute Neuro consult, Dr. Rich, f/u recs - HIS SYMPTOMS SEEMS TO BE OCULAR CAUSE septic work up neg thus far IV rx ordered Fever ID consulted, Dr. Alvarez, f/u recs Cefepime HCl 1 gm/ Dextrose 50 mls @ 100 mls/hr IVPB Q12H [facility] wbc elevated r/o malignancy Hemeonc consult, Dr. Jones, f/u recs - r/o malignancy Prophylaxis SCDs C/I Lovenox) 40 mg SC DAILY [facility] Protonix Ec Tab) 40 mg PO DAILY [facility] Neurontin) 300 mg PO TID [facility] Aspirin (Ecotrin) 81 mg PO DAILY [facility]
--- NOTE | 2017-03-24 12:55 | CP.PCM.CON ---
Past Patient History - Past Medical History & Family History Past Medical History?: No - Past Social History Smoking Status: Never Smoked - MUSCULOSKELETAL/RHEUMATOLOGICAL Hx Falls: Yes - PSYCHIATRIC Hx Substance Use: No - SURGICAL HISTORY Hx Surgeries: No - ANESTHESIA Hx Anesthesia: No Hx Anesthesia Reactions: No Meds Home Medications: Home Medication List Medication Instructions Recorded Confirmed Type Aspirin [Ecotrin] 81 mg PO DAILY 03/24/17 Rx Docusate Sodium [Colace] 100 mg PO BID #30 capsule 03/24/17 Rx Enoxaparin [Lovenox] 40 mg SC DAILY syr 03/24/17 Rx Gabapentin [Neurontin] 300 mg PO TID cap 03/24/17 Rx Magnesium Hydroxide [Milk Of 30 ml PO HS PRN #300 ml 03/24/17 Rx Magnesia] Multivitamin [Multi-Vitamin Daily] 1 each PO DAILY #30 tablet 03/24/17 Rx Pantoprazole [Protonix EC Tab] 40 mg PO DAILY ect 03/24/17 Rx fentaNYL 25 mcg/hr [Duragesic 1 patch TD Q72H #1 patch 03/24/17 Rx Patch 25 mcg/hr] oxyCODONE/Acetaminophen [Percocet 1 tab PO Q4H PRN #20 tab 03/24/17 Rx 5/325 mg Tab] Allergies/Adverse Reactions: Allergies Allergy/AdvReac Type Severity Reaction Status Date / Time No Known Allergies Allergy Unverified 03/17/17 11:11 - Medications Medications: Current Medications Acetaminophen (Tylenol 325mg Tab) 650 mg PO Q6 PRN PRN Reason: Fever >100.4 F Last Admin: 03/21/17 15:36 Dose: 650 mg Aspirin (Ecotrin) 81 mg PO DAILY [facility] Last Admin: 03/24/17 09:46 Dose: 81 mg Enoxaparin Sodium (Lovenox) 40 mg SC DAILY [facility] Last Admin: 03/24/17 09:46 Dose: 40 mg Fentanyl (Duragesic) 1 patch TD Q72H [facility] Last Admin: 03/24/17 09:50 Dose: 1 patch Gabapentin (Neurontin) 300 mg PO TID [facility] Last Admin: 03/24/17 09:46 Dose: 300 mg Cefepime HCl 1 gm/ Dextrose 50 mls @ 100 mls/hr IVPB Q12H [facility] Last Admin: 03/24/17 06:01 Dose: 100 mls/hr Oxycodone/Acetaminophen (Percocet 5/325 Mg Tab) 1 tab PO Q4H PRN PRN Reason: Pain, severe (8-10) Stop: 03/27/17 10:00 Last Admin: 03/24/17 10:59 Dose: 1 tab Pantoprazole Sodium (Protonix Ec Tab) 40 mg PO DAILY [facility] Last Admin: 03/24/17 09:46 Dose: 40 mg Results - Vital Signs Recent Vital Signs: Last Vital Signs Temp 98.9 F 03/24/17 07:00 Pulse 77 03/24/17 07:00 Resp 20 03/24/17 07:00 BP 117/67 03/24/17 07:00 Pulse Ox 96 03/24/17 07:00 - Labs Result Diagrams: 03/24/17 08:02 03/23/17 08:17 Labs: Laboratory Results - last 24 hr 03/23/17 03/23/17 03/24/17 20:07 20:07 08:02 WBC 17.2 H RBC 3.35 L Hgb 8.3 L Hct 25.0 L MCV 74.6 L MCH 24.7 L MCHC 33.1 RDW 20.7 H Plt Count 667 H MPV 8.2 Neut % (Auto) 77.1 H Lymph % (Auto) 11.0 L [place] % (Auto) 5.3 Eos % (Auto) 4.5 H Baso % (Auto) 2.1 H Neut # 13.2 H Lymph # 1.9 [place] # 0.9 H Eos # 0.8 H Baso # 0.4 H Prostate Specific Ag 0.749 IgG 1244.7 IgA 132.5 IgM 33.4 L
--- NOTE | 2017-03-24 16:32 | CP.PCM.PN ---
Subjective - Date & Time of Evaluation Date of Evaluation: 03/24/17 Time of Evaluation: 11:00 - Subjective Subjective: Awake , alert, follows commands, NAD. Objective - Vital Signs/Intake and Output Vital Signs (last 24 hours): Temp Pulse Resp BP Pulse Ox 98.9 F 77 20 117/67 96 03/24/17 07:00 03/24/17 07:00 03/24/17 07:00 03/24/17 07:00 03/24/17 07:00 - Labs Labs: 03/24/17 08:02 03/23/17 08:17 PT 16.2 SECONDS (9.7-12.2) H 03/17/17 11:31 INR 1.4 03/17/17 11:31 APTT 29 SECONDS (21-34) 03/17/17 11:31 Assessment and Plan - Assessment and Plan (Free Text) Assessment: Patient is seen and examined. Alert awake, has pain with moving. Started on fentanyl patch and percocet for pain as per DR Shanique Rodriguez. Plan to discharge to [facility]. Seen by DR Jones, labs done to rule out malignancy. Will follow up by him. Continued on maxipime 1gm iv q12h x 5 days more. Patient was cleared by neuro surgeon for physical therapy.
--- NOTE | 2017-03-24 18:56 | CP.PCM.DIS ---
Provider - Provider Date of Admission: 03/17/17 15:05 Attending physician: Dudley Rodriguez MD Time Spent in preparation of Discharge (in minutes): 30 Diagnosis - Discharge Diagnosis (1) Back pain Status: Acute (2) Back pain Status: Acute (3) Back pain at L4-L5 level Status: Acute (4) Back pain at L4-L5 level Status: Acute (5) Bandemia Status: Acute (6) Frequent falls Status: Acute (7) Generalized weakness Status: Acute Hospital Course - Lab Results Lab Results: Micro Results 03/20/17 18:00 Blood Blood Culture - Preliminary NO GROWTH AFTER 4 DAYS 03/20/17 18:00 Blood Blood Culture - Preliminary NO GROWTH AFTER 4 DAYS 03/20/17 18:04 Urine,Catheterized Urine Culture - Final No Growth (<1,000 CFU/ML) Most Recent Lab Values WBC 17.2 K/uL (4.8-10.8) H 03/24/17 08:02 RBC 3.35 Mil/uL (4.40-5.90) L 03/24/17 08:02 Hgb 8.3 g/dL (12.0-18.0) L 03/24/17 08:02 Hct 25.0 % (35.0-51.0) L 03/24/17 08:02 MCV 74.6 fL (80.0-94.0) L 03/24/17 08:02 MCH 24.7 pg (27.0-31.0) L 03/24/17 08:02 MCHC 33.1 g/dL (33.0-37.0) 03/24/17 08:02 RDW 20.7 % (11.5-14.5) H 03/24/17 08:02 Plt Count 667 K/uL (130-400) H 03/24/17 08:02 MPV 8.2 fL (7.2-11.7) 03/24/17 08:02 Neut % (Auto) 77.1 % (50.0-75.0) H 03/24/17 08:02 Lymph % (Auto) 11.0 % (20.0-40.0) L 03/24/17 08:02 Gregory % (Auto) 5.3 % (0.0-10.0) 03/24/17 08:02 Eos % (Auto) 4.5 % (0.0-4.0) H 03/24/17 08:02 Baso % (Auto) 2.1 % (0.0-2.0) H 03/24/17 08:02 Neut # 13.2 K/uL (1.8-7.0) H 03/24/17 08:02 Lymph # 1.9 K/uL (1.0-4.3) 03/24/17 08:02 Gregory # 0.9 K/uL (0.0-0.8) H 03/24/17 08:02 Eos # 0.8 K/uL (0.0-0.7) H 03/24/17 08:02 Baso # 0.4 K/uL (0.0-0.2) H 03/24/17 08:02 Neutrophils % (Manual) 42 % (50-75) L 03/23/17 08:17 Band Neutrophils % 13 % (0-2) H* 03/23/17 08:17 Lymphocytes % (Manual) 15 % (20-40) L 03/23/17 08:17 Monocytes % (Manual) 7 % (0-10) 03/23/17 08:17 Eosinophils % (Manual) 3 % (0-4) 03/23/17 08:17 Metamyelocytes % 6 % (0-0) H 03/23/17 08:17 Myelocytes % 14 % (0-0) H 03/23/17 08:17 Differential Comment Cancelled 03/21/17 07:28 Platelet Estimate Increased (NORMAL) H 03/23/17 08:17 Large Platelets Present 03/23/17 08:17 Giant Platelets Present 03/17/17 11:31 Polychromasia Slight 03/23/17 08:17 Hypochromasia (manual) Slight 03/23/17 08:17 Poikilocytosis (manual Slight 03/23/17 08:17 Anisocytosis (manual) Slight 03/23/17 08:17 Microcytosis (manual) Slight 03/23/17 08:17 Macrocytosis (manual) Slight 03/23/17 08:17 Target Cells Slight 03/23/17 08:17 Tear Drop Cells Slight 03/23/17 08:17 Ovalocytes Slight 03/23/17 08:17 [place] Cells Slight 03/23/17 08:17 Schistocytes Slight 03/20/17 18:13 PT 16.2 SECONDS (9.7-12.2) H 03/17/17 11:31 INR 1.4 03/17/17 11:31 APTT 29 SECONDS (21-34) 03/17/17 11:31 pO2 21 mm/Hg (30-55) L 03/17/17 12:18 VBG pH 7.39 (7.32-7.43) 03/17/17 12:18 VBG pCO2 46 mmHg (40-60) 03/17/17 12:18 VBG HCO3 24.9 mmol/L 03/17/17 12:18 VBG Total CO2 29.2 mmol/L (22-28) H 03/17/17 12:18 VBG O2 Sat (Calc) 34.0 % (40-65) L 03/17/17 12:18 VBG Base Excess 2.2 mmol/L (0.0-2.0) H 03/17/17 12:18 VBG Potassium 4.2 mmol/L (3.6-5.2) 03/17/17 12:18 Sodium 142.0 mmol/l (132-148) 03/17/17 12:18 Chloride 109.0 mmol/L (98-107) H 03/17/17 12:18 Glucose 152 mg/dl (75-110) H 03/17/17 12:18 Lactate 1.6 mmol/L (0.7-2.1) 03/17/17 12:18 Sodium 138 mmol/L (132-148) 03/23/17 08:17 Potassium 4.0 mmol/L (3.6-5.2) 03/23/17 08:17 Chloride 104 mmol/L (98-107) 03/23/17 08:17 Carbon Dioxide 24 mmol/L (22-30) 03/23/17 08:17 Anion Gap 13 (10-20) 03/23/17 08:17 BUN 17 mg/dL (9-20) 03/23/17 08:17 Creatinine 0.6 MG/DL (0.8-1.5) L 03/23/17 08:17 Est GFR ( Amer) > 60 03/23/17 08:17 Est GFR (Non-Af Amer) > 60 03/23/17 08:17 POC Glucose (mg/dL) 165 mg/dL (65-110) H 03/17/17 11:18 Random Glucose 95 mg/dL (75-110) 03/23/17 08:17 Calcium 8.1 mg/dl (8.6-10.4) L 03/23/17 08:17 Total Bilirubin 0.5 mg/dL (0.2-1.3) 03/23/17 08:17 AST 27 U/L (17-59) 03/23/17 08:17 ALT 26 U/L (21-72) 03/23/17 08:17 Alkaline Phosphatase 91 U/L (38-126) 03/23/17 08:17 Total Creatine Kinase 208 U/L (55-170) H 03/17/17 11:31 Troponin I < 0.0120 ng/mL (0.00-0.120) 03/17/17 11:31 Total Protein 6.6 g/dL (6.3-8.3) 03/23/17 08:17 Albumin 3.0 g/dL (3.5-5.0) L 03/23/17 08:17 Globulin 3.6 gm/dL (2.2-3.9) 03/23/17 08:17 Albumin/Globulin Ratio 0.8 (1.0-2.1) L 03/23/17 08:17 Prostate Specific Ag 0.749 ng/mL (0.00-4.0) 03/23/17 20:07 Procalcitonin > 200.00 NG/ML (0.19-0.49) H 03/24/17 08:02 Venous Blood Potassium 4.2 mmol/L (3.6-5.2) 03/17/17 12:18 Urine Color Yellow (YELLOW) 03/20/17 18:13 Urine Clarity Clear (Clear) 03/20/17 18:13 Urine pH 6.0 (5.0-8.0) 03/20/17 18:13 Ur Specific [place] 1.015 (1.003-1.030) 03/20/17 18:13 Urine Protein Negative mg/dL (NEGATIVE) 03/20/17 18:13 Urine Glucose (UA) Normal mg/dL (Normal) 03/20/17 18:13 Urine Ketones Negative mg/dL (NEGATIVE) 03/20/17 18:13 Urine Blood Negative (NEGATIVE) 03/20/17 18:13 Urine Nitrate Negative (NEGATIVE) 03/20/17 18:13 Urine Bilirubin Negative (NEGATIVE) 03/20/17 18:13 Urine Urobilinogen Normal mg/dL (0.2-1.0) 03/20/17 18:13 Ur Leukocyte Esterase Neg Osmany/uL (Negative) 03/20/17 18:13 Urine WBC (Auto) 4 /hpf (0-5) 03/20/17 18:13 Urine RBC (Auto) 3 /hpf (0-3) 03/20/17 18:13 Ur Squamous Epith Cells 1 /hpf (0-5) 03/20/17 18:13 Amorphous Sediment Occ /ul (<OCC) H 03/20/17 18:13 Urine Bacteria Rare (<OCC) 03/17/17 12:41 Stool Occult Blood Negative (NEGATIVE) 03/17/17 12:41 IgG 1244.7 mg/dL (700.0-1600.0) 03/23/17 20:07 IgA 132.5 mg/dL (70.0-400.0) 03/23/17 20:07 IgM 33.4 mg/dL (40.0-230.0) L 03/23/17 20:07 Blood Type A POSITIVE 03/17/17 11:58 Antibody Screen Negative 03/17/17 11:58 - Hospital Course Hospital Course: Patient is admitted status post fall Multiple imaging found to have a fracture on the L2 during the course patient has had a bandemia treated with antibiotics seen by ID patient also received a brace spoke to multiple times in gland and the ileum patient is for the discharge to the glans barely thinks that this is old fracture may not be replaced continue same for to be followed up by Dr. Camarillo for elevated WBC family is aware about the discharge and follow-up with Dr. allen Discharge Exam - Head Exam Head Exam: NORMOCEPHALIC - Eye Exam Eye Exam: EOMI, Normal appearance, PERRL Pupil Exam: NORMAL ACCOMODATION, PERRL - ENT Exam ENT Exam: Mucous Membranes Dry - Neck Exam Neck exam: Full Rom - Respiratory Exam Respiratory Exam: Decreased Breath Sounds, Rales - Cardiovascular Exam Cardiovascular Exam: +S1, +S2 - GI/Abdominal Exam GI & Abdominal Exam: Diminished Bowel Sounds, Soft - Rectal Exam Rectal Exam: Deferred - Neurological Exam Neurological exam: Oriented x3 Discharge Plan - Discharge Medications Prescriptions: Docusate Sodium [Colace] 100 mg PO BID #30 capsule Magnesium Hydroxide [Milk Of Magnesia] 30 ml PO HS PRN #300 ml PRN Reason: Constipation Multivitamin [Multi-Vitamin Daily] 1 each PO DAILY #30 tablet - Follow Up Plan Condition: STABLE Disposition: REHAB FACILITY/REHAB UNIT Instructions: Laxative, Stool Softeners (By mouth), Magnesium Hydroxide (By mouth), Weakness (GEN), Back Pain (GEN) Referrals: Melissa Rodriguez MD [Staff Provider] -
== END 2017-03-24 13:39 | DRG 552 ==
LOC: C.ER 11:00 → C.3T 15:05
PROVIDERS: ADMIT Internal Medicine Nephrology; ATTEND Internal Medicine Nephrology
DX: S32.029A Unspecified fracture of second lumbar vertebra, initial encounter for closed fracture (principal); S09.90XA Unspecified injury of head, initial encounter; G62.9 Polyneuropathy, unspecified; M51.37 Other intervertebral disc degeneration, lumbosacral region; W18.39XA Other fall on same level, initial encounter; D72.825 Bandemia; R29.6 Repeated falls; R53.1 Weakness; M46.90 Unspecified inflammatory spondylopathy, site unspecified; H53.2 Diplopia

== ENCOUNTER 2017-05-16 12:17 | Inpatient (IN) | payer MEDICARE ==
[2017-05-16 12:19] VITALS: BMI 24.5
[2017-05-16] MEDS ORDERED: Iohexol 240 (50 ml) PO STA (13:43)
[2017-05-16 13:48] LABS: BASO # 0.2 K/uL (0.0-0.2); BASO % 1.5 % (0.0-2.0); EOS # 0.5 K/uL (0.0-0.7); EOS % 5.2 % (0.0-4.0); HEMATOCRIT 28.3 % (35.0-51.0); LYMPH # 1.5 K/uL (1.0-4.3); MEAN CELL VOLUME 76.6 fL (80.0-94.0); MEAN CORPUSCULAR HEMOGLOBIN 24.5 pg (27.0-31.0); MEAN PLATELET VOLUME 7.7 fL (7.2-11.7); MONO % 9.6 % (0.0-10.0); NRBC % 0.1 % (0.0-2.0); RED CELL DISTRIBUTION WIDTH 20.8 % (11.5-14.5); WHITE BLOOD COUNT 10.1 K/uL (4.8-10.8)
[2017-05-16] MEDS ORDERED: Iohexol 240 (50 ml) ONE (13:53)
[2017-05-16 13:58] LABS: INR 1.2
[2017-05-16 14:53] LABS: URINE BILIRUBIN NEGATIVE (NEGATIVE); URINE BLOOD NEGATIVE (NEGATIVE); URINE CALCIUM OXALATE CRYSTALS RARE /hpf (<OCC); URINE COLOR Yellow (YELLOW); URINE GLUCOSE (UA) NORMAL (Normal); URINE KETONE NEGATIVE (NEGATIVE); URINE LEUKOCYTE ESTERASE NEG Leu/uL (Negative); URINE PROTEIN NEGATIVE (NEGATIVE); URINE UROBILINOGEN NORMAL mg/dL (0.2-1.0); WBC URINE 1 /hpf (0-5)
[2017-05-16 15:12] LABS: CHLORIDE 99 mmol/L (98-107); POTASSIUM 3.9 mmol/L (3.6-5.2); SODIUM 132 mmol/L (132-148)
[2017-05-16 15:14] LABS: AST/SGOT 14 U/L (17-59); BILIRUBIN,TOTAL 0.6 mg/dL (0.2-1.3); CARBON DIOXIDE 24 mmol/L (22-30); GFR AFRICAN-AMERICAN > 60; TOTAL PROTEIN 7.5 g/dL (6.3-8.3)
[2017-05-16 15:15] LABS: ALKALINE PHOSPHATASE 75 U/L (38-126); ALT/SGPT 21 U/L (21-72); BLOOD UREA NITROGEN 20 mg/dL (9-20); CALCIUM 7.6 mg/dl (8.6-10.4); GLUCOSE,RANDOM 87 mg/dL (75-110); PHOSPHOROUS 3.5 mg/dL (2.5-4.5)
[2017-05-16 15:16] LABS: MAGNESIUM 1.6 mg/dL (1.6-2.3)
[2017-05-16] MEDS ORDERED: Iohexol 300 100 ML IJ ONE (16:28)
--- NOTE | 2017-05-16 17:28 | CT ---
PROCEDURE: CT Abdomen and Pelvis with contrast HISTORY: Abdominal pain. Back pain s/p fall. COMPARISON: None. TECHNIQUE: Contrast dose: 100 cc Omnipaque 300 Radiation dose: Total exam DLP = 537.32 mGy-cm. This CT exam was performed using one or more of the following dose reduction techniques: Automated exposure control, adjustment of the mA and/or kV according to patient size, and/or use of iterative reconstruction technique. FINDINGS: LOWER THORAX: Unremarkable. LIVER: Unremarkable. No gross lesion or ductal dilatation. Incidental finding(s): Innumerable hepatic cysts the preponderance of which are 1 cm in smaller. GALLBLADDER AND BILE DUCTS: Unremarkable. PANCREAS: Unremarkable. No gross lesion or ductal dilatation. SPLEEN: Unremarkable. ADRENALS: Unremarkable. No mass. KIDNEYS AND URETERS: Unremarkable. No hydronephrosis. No solid mass. VASCULATURE: Unremarkable. No aortic aneurysm. BOWEL: Diffuse thickening of the wall of the rectum consistent with proctitis. APPENDIX: A normal appendix is not visualize, right lower quadrant surgical change suggest prior appendectomy. No right lower quadrant inflammatory processes identified. PERITONEUM: Unremarkable. No free fluid. No free air. LYMPH NODES: Unremarkable. No enlarged lymph nodes. BLADDER: Unremarkable. REPRODUCTIVE: Unremarkable. BONES: No acute fracture. OTHER FINDINGS: Dependent edema or soft tissue contusion sub gluteal region without adjacent sacral or pelvic osseous abnormality. IMPRESSION: Soft tissue injury right gluteal region. No underlying adjacent osseous or intrapelvic abnormalities. Thickening of the wall of the rectum consistent with proctitis. No focal lesions identified nor is there evidence of mechanical obstruction. Additional benign and/or incidental findings described above.
--- NOTE | 2017-05-16 19:26 | C.PDOC ---
History Of Present Illness Pt c/o generalized weakness and states that he is now unable to walk even with his walker. He falls frequents and last time he fell was 2 days ago. Denies head injury. He c/o abdominal pain. Time Seen by Provider: 05/16/17 13:07 Chief Complaint (Nursing): Weakness/Neurological Deficit History Per: Patient, Family Onset/Duration Of Symptoms: Days Current Symptoms Are (Timing): Worse Current Symptoms: Generalized weakness. Abdominal pain. Seizure Or Post-ictal Symptoms: None Fall Associated With With Symptoms: Yes, Positive Injury (Fell on buttocks) Severity: Moderate Additional History Per: Prior Records - Symptoms Of CVA Associated Symptoms: Decreased Ability To Walk Recent Head Trauma: No Past Medical History Reviewed: Historical Data, Nursing Documentation, Vital Signs Vital Signs: Last Vital Signs Temp 99.3 F 05/16/17 16:28 Pulse 97 H 05/16/17 16:28 Resp 22 05/16/17 16:28 BP 132/79 05/16/17 16:28 Pulse Ox 95 05/16/17 16:28 - Medical History PMH: Anemia, Fractures (L2 compression) Family History: States: Unknown Family Hx - Social History Hx Alcohol Use: Yes (socially) Hx Substance Use: No - Immunization History Hx Tetanus Toxoid Vaccination: No Hx Influenza Vaccination: No Hx Pneumococcal Vaccination: No Review Of Systems Except As Marked, All Systems Reviewed And Found Negative. Constitutional: Positive for: Weakness. Negative for: Fever Cardiovascular: Positive for: Edema. Negative for: Chest Pain Respiratory: Negative for: Shortness of Breath Gastrointestinal: Positive for: Abdominal Pain, Diarrhea (resolved). Negative for: Vomiting Genitourinary: Positive for: Frequency. Negative for: Dysuria Musculoskeletal: Positive for: Back Pain. Negative for: Neck Pain Skin: Negative for: Rash Neurological: Negative for: Numbness, Seizures, Headache Physical Exam - Physical Exam Appears: No Acute Distress, Chronically Ill Skin: Normal Color, Warm, Dry Head: Atraumatic Eye(s): bilateral: PERRL Neck: Normal ROM, No Midline Cervical Tenderness, No Step Off Deformity, Supple Cardiovascular: Rhythm Regular Respiratory: Normal Breath Sounds, No Accessory Muscle Use Gastrointestinal/Abdominal: Soft, Tenderness (nonspecific), No Guarding, No Rebound Back: Paraspinal Tenderness Extremity: Normal ROM, Pedal Edema (b/l) Neurological/Psych: Oriented x3, Normal Motor, Normal Sensation Gait: Unable To Assess ED Course And Treatment - Laboratory Results Result Diagrams: 05/16/17 13:44 05/16/17 14:41 ECG: Interpreted By Me, Viewed By Me ECG Rhythm: Sinus Rhythm, PVC, Nonspecific Changes Rate From EC O2 Sat by Pulse Oximetry: 95 Pulse Ox Interpretation: Normal - CT Scan/US CT abd/pelv. Other Rad Studies (CT/US): Read By Radiologist, Radiology Report Reviewed CT/US Interpretation: IMPRESSION: Soft tissue injury right gluteal region. No underlying adjacent osseous or intrapelvic abnormalities. Thickening of the wall of the rectum consistent with proctitis. No focal lesions identified nor is there evidence of mechanical obstruction. Additional benign and/or incidental findings described above. Disposition Discussed With : Abe Fuller (Covering) Comment: He accepted pt on his service. Doctor Will See Patient In The: Hospital Counseled Patient/Family Regarding: Studies Performed, Diagnosis - Disposition Disposition: HOSPITALIZED Disposition Time: 19:33 Condition: FAIR - Clinical Impression Clinical Impression: Bilateral leg edema, Inability to walk, Abdominal pain, Frequent falls, Failure to thrive in adult
[2017-05-16 21:15] VITALS: RESP 20
--- NOTE | 2017-05-17 00:27 | RAD ---
HISTORY: Leg edema COMPARISON: Comparison is made to 03/17/2017 FINDINGS: LUNGS: Mild pulmonary vascular congestion is noted. PLEURA: No evidence of significant pleural effusion or pneumothorax CARDIOVASCULAR: The cardiac silhouette is prominent in size. OSSEOUS STRUCTURES: No significant abnormalities. VISUALIZED UPPER ABDOMEN: Normal. OTHER FINDINGS: None. IMPRESSION: Mild pulmonary vascular congestion.
--- NOTE | 2017-05-17 11:24 | CARD ---
APPROVED REPORT EKG Measurement Heart [id number] <Conclusion> Sinus rhythm with occasional premature atrial complexes Minimal voltage criteria for LVH, may be normal variant Borderline ECG
--- NOTE | 2017-05-17 15:15 | CP.PCM.HP ---
History of Present Illness - History of Present Illness History of Present Illness: s/p fall and has diff walking, h/o compression fx L2 mild swelling of ankles review of prior work up reveals abn bone marrow signal on mri of L spine anemia and thrombocytosis ? malignancy Present on Admission - Present on Admission Any Indicators Present on Admission: Yes Review of Systems - Review of Systems All systems: reviewed and no additional remarkable complaints except - Constitutional Constitutional: Weakness - Gastrointestinal Gastrointestinal: Diarrhea - Musculoskeletal Musculoskeletal: Back Pain - Neurological Neurological: Weakness Past Patient History - Past Medical History & Family History Past Medical History?: No - Past Social History Smoking Status: Never Smoked - HEMATOLOGICAL/ONCOLOGICAL Hx Anemia: Yes - MUSCULOSKELETAL/RHEUMATOLOGICAL Hx Falls: Yes - PSYCHIATRIC Hx Substance Use: No - SURGICAL HISTORY Hx Surgeries: No - ANESTHESIA Hx Anesthesia: No Hx Anesthesia Reactions: No Hx Malignant Hyperthermia: No Has any member of the family had a problem w/ anesthesia?: No Meds Allergies/Adverse Reactions: Allergies Allergy/AdvReac Type Severity Reaction Status Date / Time No Known Allergies Allergy Verified 05/16/17 12:19 Physical Exam - Constitutional Appears: Chronically Ill - Head Exam Head Exam: ATRAUMATIC, NORMOCEPHALIC - Eye Exam Eye Exam: Normal appearance - ENT Exam ENT Exam: Mucous Membranes Moist - Neck Exam Neck exam: Positive for: Normal Inspection - Respiratory Exam Respiratory Exam: Decreased Breath Sounds - Cardiovascular Exam Cardiovascular Exam: REGULAR RHYTHM, +S1, +S2 - GI/Abdominal Exam GI & Abdominal Exam: Normal Bowel Sounds - Rectal Exam Rectal Exam: Deferred - Back Exam Back exam: vertebral tenderness - Neurological Exam Neurological exam: Alert, Oriented x3 - Psychiatric Exam Psychiatric exam: Normal Affect, Normal Mood - Skin Skin Exam: Intact Results - Vital Signs Recent Vital Signs: Last Vital Signs Temp 98.1 F 05/17/17 08:14 Pulse 88 05/17/17 08:14 Resp 20 05/17/17 08:14 BP 136/73 05/17/17 08:14 Pulse Ox 97 05/17/17 08:14 - Labs Result Diagrams: 05/16/17 13:44 05/16/17 14:41 Labs: Laboratory Results - last 24 hr 05/16/17 14:41 Sodium 132 Potassium 3.9 Chloride 99 Carbon Dioxide 24 Anion Gap 14 BUN 20 Creatinine 0.6 L Est GFR ( Amer) > 60 Est GFR (Non-Af Amer) > 60 Random Glucose 87 Calcium 7.6 L Phosphorus 3.5 Magnesium 1.6 Total Bilirubin 0.6 AST 14 L D ALT 21 Alkaline Phosphatase 75 Troponin I < 0.0120 NT-Pro-B Natriuret Pep 1550 H Total Protein 7.5 Albumin 3.7 Globulin 3.8 Albumin/Globulin Ratio 1.0 Lipase 106 Assessment & Plan (1) Diarrhea Status: Acute (2) Frequent falls Status: Chronic (3) Back pain Status: Chronic (4) Thrombocytosis Status: Chronic (5) Anemia Status: Chronic (6) Bilateral leg edema Status: Acute
[2017-05-17] MEDS: Enoxaparin 30 mg Syringe SC SCH (15:40)
[2017-05-17 17:29] LABS: IRON 18 ug/dL (49-181)
[2017-05-17] MEDS: Tramadol 25 mg PO SCH (18:13)
--- NOTE | 2017-05-18 07:21 | CP.PCM.PN ---
Subjective - Date & Time of Evaluation Date of Evaluation: 05/18/17 Time of Evaluation: 07:18 - Subjective Subjective: feels weak, mild back pain, diarrhea resolved iron studies show iron def. check stool OB ferricet iv gi and heme eval awaited Objective - Vital Signs/Intake and Output Vital Signs (last 24 hours): Temp Pulse Resp BP Pulse Ox 98.9 F 81 20 131/75 97 05/18/17 00:04 05/18/17 00:04 05/18/17 00:04 05/18/17 00:04 05/18/17 00:04 Intake and Output: 05/18/17 05/18/17 06:59 18:59 Intake Total 420 Balance 420 - Medications Medications: Current Medications Acetaminophen (Tylenol 325mg Tab) 650 mg PO Q6 PRN PRN Reason: Arthritis Aspirin (Ecotrin) 81 mg PO DAILY [facility] Enoxaparin Sodium (Lovenox) 30 mg SC DAILY [facility] Last Admin: 05/17/17 15:40 Dose: 30 mg Ferric Sodium Gluconate Complex (Ferrlecit) 125 mg IVPB DAILY [facility] Stop: 05/26/17 10:01 Gabapentin (Neurontin) 100 mg PO TID [facility] Last Admin: 05/17/17 18:08 Dose: 100 mg Pantoprazole Sodium (Protonix Ec Tab) 40 mg PO DAILY [facility] Tramadol HCl (Ultram) 25 mg PO TID [facility] Last Admin: 05/17/17 18:13 Dose: 25 mg - Labs Labs: 05/16/17 13:44 05/16/17 14:41 PT 13.6 SECONDS (9.7-12.2) H 05/16/17 13:44 INR 1.2 05/16/17 13:44 APTT 34 SECONDS (21-34) 05/16/17 13:44 - Constitutional Appears: No Acute Distress, Chronically Ill - Head Exam Head Exam: ATRAUMATIC, NORMOCEPHALIC - Eye Exam Eye Exam: Normal appearance - ENT Exam ENT Exam: Mucous Membranes Moist - Neck Exam Neck Exam: Normal Inspection - Respiratory Exam Respiratory Exam: Decreased Breath Sounds - Cardiovascular Exam Cardiovascular Exam: REGULAR RHYTHM, +S1, +S2 - GI/Abdominal Exam GI & Abdominal Exam: Normal Bowel Sounds - Rectal Exam Rectal Exam: Deferred - Neurological Exam Neurological Exam: Alert, Oriented x3 - Psychiatric Exam Psychiatric exam: Normal Affect, Normal Mood - Skin Skin Exam: Intact Assessment and Plan (1) Diarrhea Status: Acute (2) Frequent falls Status: Chronic (3) Back pain Status: Chronic (4) Thrombocytosis Status: Chronic (5) Anemia Status: Chronic (6) Bilateral leg edema Status: Acute
[2017-05-18 08:03] LABS: BASO # 0.3 K/uL (0.0-0.2); BASO % 3.1 % (0.0-2.0); EOS # 0.5 K/uL (0.0-0.7); EOS % 5.5 % (0.0-4.0); HEMATOCRIT 25.5 % (35.0-51.0); LYMPH # 1.5 K/uL (1.0-4.3); LYMPH % 17.2 % (20.0-40.0); MEAN CELL VOLUME 77.1 fL (80.0-94.0); MEAN CORPUSCULAR HEMOGLOBIN 25.4 pg (27.0-31.0); MEAN CORPUSCULAR HGB CONC 32.9 g/dL (33.0-37.0); MEAN PLATELET VOLUME 7.7 fL (7.2-11.7); MONO % 11.4 % (0.0-10.0); NRBC % 0.1 % (0.0-2.0); RED CELL DISTRIBUTION WIDTH 20.6 % (11.5-14.5); WHITE BLOOD COUNT 8.9 K/uL (4.8-10.8)
[2017-05-18 08:35] LABS: PLATELET COUNT 674 K/uL (130-400)
[2017-05-18 08:55] LABS: CHLORIDE 100 mmol/L (98-107); POTASSIUM 4.2 mmol/L (3.6-5.2); SODIUM 132 mmol/L (132-148)
[2017-05-18 08:58] LABS: CARBON DIOXIDE 23 mmol/L (22-30); GFR AFRICAN-AMERICAN > 60
[2017-05-18 08:59] LABS: BLOOD UREA NITROGEN 19 mg/dL (9-20); CALCIUM 7.8 mg/dl (8.6-10.4); GLUCOSE,RANDOM 117 mg/dL (75-110); MAGNESIUM 1.7 mg/dL (1.6-2.3)
[2017-05-18 09:56] LABS: EOSINOPHIL 4 % (0-4); MYELOCYTE 2 % (0-0); NEUTROPHIL 66 % (50-75); TOTAL CELLS COUNTED 100
[2017-05-18] MEDS: Pantoprazole 40 mg EC Tab PO SCH (09:56)
[2017-05-18] MEDS: Tramadol 25 mg PO SCH ×3 (09:57→18:21)
[2017-05-18] MEDS: Ferric Sodium Gluconat Complex 62.5 mg/5 ml Vial IVPB SCH (09:58)
[2017-05-18 09:59] LABS: GIANT PLATELETS PRESENT; LARGE PLATELETS PRESENT
[2017-05-18] MEDS: Enoxaparin 30 mg Syringe SC SCH (09:59)
[2017-05-18 12:24] LABS: ERYTHROCYTE SEDIMENTATION RATE 92 mm/hr (0-15)
--- NOTE | 2017-05-18 14:58 | CP.PCM.CON ---
History of Present Illness - History of Present Illness History of Present Illness: This is an 86 year old man admitted for weakness, inability to ambulate, with diarrhea. Patient is a poor historian. Hie was evaluated for leukocytosis last month and was found to have 0.8% myeloblasts. He now has diarrhea, up to five or six times daily, watery, non- bloody. He denies having constipation, nausea, vomiting, loss of appetite, difficulty swallowing. He reports having a burning sensation in the left side of the chest, but denies having abdominal pain. Review of Systems - Review of Systems All systems: reviewed and no additional remarkable complaints except - Constitutional Constitutional: Weakness. absent: Fever - Cardiovascular Cardiovascular: Pedal Edema. absent: Chest Pain - Respiratory Respiratory: absent: Dyspnea - Gastrointestinal Gastrointestinal: absent: Abdominal Pain, Dysphagia, Nausea, Vomiting - Genitourinary Genitourinary: Urinary Frequency - Musculoskeletal Musculoskeletal: Back Pain Past Patient History - Past Medical History & Family History Past Medical History?: No - Past Social History Smoking Status: Never Smoked - HEMATOLOGICAL/ONCOLOGICAL Hx Anemia: Yes - MUSCULOSKELETAL/RHEUMATOLOGICAL Hx Falls: Yes - PSYCHIATRIC Hx Substance Use: No - SURGICAL HISTORY Hx Surgeries: No - ANESTHESIA Hx Anesthesia: No Hx Anesthesia Reactions: No Hx Malignant Hyperthermia: No Has any member of the family had a problem w/ anesthesia?: No Meds Allergies/Adverse Reactions: Allergies Allergy/AdvReac Type Severity Reaction Status Date / Time No Known Allergies Allergy Verified 05/16/17 12:19 - Medications Medications: Current Medications Acetaminophen (Tylenol 325mg Tab) 650 mg PO Q6 PRN PRN Reason: Arthritis Aspirin (Ecotrin) 81 mg PO DAILY [facility] Last Admin: 05/18/17 09:56 Dose: 81 mg Enoxaparin Sodium (Lovenox) 30 mg SC DAILY [facility] Last Admin: 05/18/17 09:59 Dose: 30 mg Ferric Sodium Gluconate Complex (Ferrlecit) 125 mg IVPB DAILY [facility] Stop: 05/26/17 10:01 Last Admin: 05/18/17 09:58 Dose: 125 mg Gabapentin (Neurontin) 100 mg PO TID [facility] Last Admin: 05/18/17 13:28 Dose: 100 mg Pantoprazole Sodium (Protonix Ec Tab) 40 mg PO DAILY [facility] Last Admin: 05/18/17 09:56 Dose: 40 mg Tramadol HCl (Ultram) 25 mg PO TID [facility] Last Admin: 05/18/17 13:27 Dose: 25 mg Physical Exam - Head Exam Head Exam: ATRAUMATIC, NORMOCEPHALIC - Eye Exam Eye Exam: EOMI, PERRL - Neck Exam Neck exam: Negative for: Lymphadenopathy, Thyromegaly - Respiratory Exam Respiratory Exam: NORMAL BREATHING PATTERN. absent: Rales, Rhonchi, Wheezes - Cardiovascular Exam Cardiovascular Exam: REGULAR RHYTHM, +S1, +S2. absent: Gallop, Rubs, Systolic Murmur - GI/Abdominal Exam GI & Abdominal Exam: Normal Bowel Sounds, Soft. absent: Mass, Organomegaly, Tenderness - Rectal Exam Rectal Exam: Deferred - Extremities Exam Extremities exam: Negative for: calf tenderness, pedal edema Results - Vital Signs Recent Vital Signs: Last Vital Signs Temp 97.8 F 05/18/17 08:23 Pulse 76 05/18/17 08:23 Resp 20 05/18/17 08:23 BP 115/70 05/18/17 08:23 Pulse Ox 99 05/18/17 08:23 - Labs Result Diagrams: 05/18/17 07:43 05/18/17 07:43 Labs: Laboratory Results - last 24 hr 05/17/17 05/17/17 05/18/17 17:09 17:09 07:43 WBC 8.9 RBC 3.31 L Hgb 8.4 L Hct 25.5 L MCV 77.1 L MCH 25.4 L MCHC 32.9 L RDW 20.6 H Plt Count 674 H D MPV 7.7 Neut % (Auto) 62.8 Lymph % (Auto) 17.2 L [place] % (Auto) 11.4 H Eos % (Auto) 5.5 H Baso % (Auto) 3.1 H Neut # 5.6 Lymph # 1.5 [place] # 1.0 H Eos # 0.5 Baso # 0.3 H Neutrophils % (Manual) 66 Band Neutrophils % 2 Lymphocytes % (Manual) 15 L Monocytes % (Manual) 11 H Eosinophils % (Manual) 4 Myelocytes % 2 H Platelet Estimate Increased H Large Platelets Present Giant Platelets Present Hypochromasia (manual) Moderate Poikilocytosis (manual Slight Basophilic Stippling Slight Anisocytosis (manual) Moderate Tear Drop Cells Slight Ovalocytes Slight ESR 92 H Sodium Potassium Chloride Carbon Dioxide Anion Gap BUN Creatinine Est GFR ( Amer) Est GFR (Non-Af Amer) Random Glucose Calcium Magnesium Iron 18 L TIBC 164 L % Saturation 11 L Ferritin 490.0 Vitamin B12 848 Folate Free T4 TSH 3rd Generation 05/18/17 05/18/17 07:43 07:43 WBC RBC Hgb Hct MCV MCH MCHC RDW Plt Count MPV Neut % (Auto) Lymph % (Auto) [place] % (Auto) Eos % (Auto) Baso % (Auto) Neut # Lymph # [place] # Eos # Baso # Neutrophils % (Manual) Band Neutrophils % Lymphocytes % (Manual) Monocytes % (Manual) Eosinophils % (Manual) Myelocytes % Platelet Estimate Large Platelets Giant Platelets Hypochromasia (manual) Poikilocytosis (manual Basophilic Stippling Anisocytosis (manual) Tear Drop Cells Ovalocytes ESR Sodium 132 Potassium 4.2 Chloride 100 Carbon Dioxide 23 Anion Gap 13 BUN 19 Creatinine 0.7 L Est GFR ( Amer) > 60 Est GFR (Non-Af Amer) > 60 Random Glucose 117 H Calcium 7.8 L Magnesium 1.7 Iron TIBC % Saturation Ferritin Vitamin B12 Folate 7.0 Free T4 1.48 TSH 3rd Generation 0.20 L Assessment & Plan (1) Diarrhea Assessment and Plan: Diarrhea in a patient who was recently hospitalized - will rule out C difficile infection with PCR. We will also send stool for occult blood, leukocytes, culture and examination for O and P. Consider colonoscopy. Status: Acute
--- NOTE | 2017-05-19 08:54 | CP.PCM.PN ---
Subjective - Date & Time of Evaluation Date of Evaluation: 05/19/17 Time of Evaluation: 08:52 - Subjective Subjective: Patient complains of back pain, feet feeling tight. He denies having abdominal pain, nausea, vomiting, diarrhea, constipation, rectal bleeding. Objective - Vital Signs/Intake and Output Vital Signs (last 24 hours): Temp Pulse Resp BP Pulse Ox 98.1 F 71 20 125/61 97 05/18/17 23:33 05/18/17 23:33 05/18/17 23:33 05/18/17 23:33 05/18/17 23:33 Intake and Output: 05/19/17 05/19/17 06:59 18:59 Intake Total 150 Balance 150 - Medications Medications: Current Medications Acetaminophen (Tylenol 325mg Tab) 650 mg PO Q6 PRN PRN Reason: Arthritis Aspirin (Ecotrin) 81 mg PO DAILY [facility] Last Admin: 05/18/17 09:56 Dose: 81 mg Enoxaparin Sodium (Lovenox) 30 mg SC DAILY [facility] Last Admin: 05/18/17 09:59 Dose: 30 mg Ferric Sodium Gluconate Complex (Ferrlecit) 125 mg IVPB DAILY [facility] Stop: 05/26/17 10:01 Last Admin: 05/18/17 09:58 Dose: 125 mg Gabapentin (Neurontin) 100 mg PO TID [facility] Last Admin: 05/18/17 18:21 Dose: 100 mg Pantoprazole Sodium (Protonix Ec Tab) 40 mg PO DAILY [facility] Last Admin: 05/18/17 09:56 Dose: 40 mg Tramadol HCl (Ultram) 25 mg PO TID [facility] Last Admin: 05/18/17 18:21 Dose: Not Given - Labs Labs: 05/18/17 07:43 05/18/17 07:43 PT 13.6 SECONDS (9.7-12.2) H 05/16/17 13:44 INR 1.2 05/16/17 13:44 APTT 34 SECONDS (21-34) 05/16/17 13:44 - Constitutional Appears: No Acute Distress - Head Exam Head Exam: ATRAUMATIC, NORMOCEPHALIC - Eye Exam Eye Exam: EOMI, PERRL - Neck Exam Neck Exam: absent: Lymphadenopathy, Thyromegaly - Respiratory Exam Respiratory Exam: NORMAL BREATHING PATTERN. absent: Rales, Rhonchi, Wheezes - Cardiovascular Exam Cardiovascular Exam: REGULAR RHYTHM, +S1, +S2. absent: Gallop, Rubs, Murmur - GI/Abdominal Exam GI & Abdominal Exam: Soft, Normal Bowel Sounds. absent: Tenderness, Mass, Organomegaly - Rectal Exam Rectal Exam: Deferred - Extremities Exam Extremities Exam: absent: Calf Tenderness, Pedal Edema Assessment and Plan (1) Diarrhea Assessment & Plan: Patient is confused and currently denies having diarrhea. Stool cultures are pending. Recommend checking stool for C difficile, etc. If these tests are non -diagnostic, consider colonoscopy. Status: Acute
--- NOTE | 2017-05-19 08:55 | CARD ---
APPROVED REPORT EXAM: Two-dimensional and M-mode echocardiogram with Doppler and color Doppler. Other Information Quality : GoodRhythm : NSR INDICATION PEDAL EDEMA 2D DIMENSIONS IVSd1.3 (0.7-1.1cm)LVDd4.7 (3.9-5.9cm) PWd1.0 (0.7-1.1cm)LVDs2.9 (2.5-4.0cm) FS (%) 37.6 %LVEF (%)67.6 (>50%) M-Mode DIMENSIONS Left Atrium (MM)4.02 (2.5-4.0cm)Aortic Root3.49 (2.2-3.7cm) Aortic Cusp Exc.1.57 (1.5-2.0cm) Mitral Valve MV E Loctiymq18.6cm/sMV A Llfvhktu78.5cm/sE/A ratio0.7 TDI E/Lateral E'0.0E/Medial E'0.0 Tricuspid Valve TR Peak Omjxsdke558nf/sTR Peak Gr.[id number] LEFT VENTRICLE The left ventricle is normal size. There is normal left ventricular wall thickness. Left ventricle systolic function is normal. The Ejection Fraction is 65-70%. There is normal LV segmental wall motion. Tissue Doppler imaging reveals abnormal left ventricular diastolic dysfunction. RIGHT VENTRICLE The right ventricle is normal size. There is normal right ventricular wall thickness. The right ventricular systolic function is normal. ATRIA The left atrium is mildly dilated. The right atrium size is normal. The interatrial septum is intact with no evidence for an atrial septal defect. AORTIC VALVE The aortic valve is normal in structure. No aortic regurgitation is present. There is no aortic valvular stenosis. There is no aortic valvular vegetation. MITRAL VALVE The mitral valve is normal in structure. There is no evidence of mitral valve prolapse. There is no mitral valve stenosis. Mitral regurgitation is trace to mild. TRICUSPID VALVE The tricuspid valve is normal in structure. There is trace to mild tricuspid regurgitation. Right ventricular systolic pressure is estimated at 30 mmHg. There is borderline pulmonary hypertension. PULMONIC VALVE The pulmonic valve is not well visualized. There is no pulmonic valvular regurgitation. GREAT VESSELS The aortic root is normal in size. PERICARDIAL EFFUSION There is no significant pericardial effusion. <Conclusion> Left ventricle systolic function is normal. The Ejection Fraction is 65-70%. Diastolic dysfunction. No aortic regurgitation is present. Mitral regurgitation is trace to mild. There is trace to mild tricuspid regurgitation. There is borderline pulmonary hypertension. There is no pulmonic valvular regurgitation.
[2017-05-19] MEDS: Enoxaparin 30 mg Syringe SC SCH (09:44)
[2017-05-19] MEDS: Pantoprazole 40 mg EC Tab PO SCH (09:45)
[2017-05-19] MEDS: Tramadol 25 mg PO SCH ×3 (09:52→17:37)
[2017-05-19] MEDS: Ferric Sodium Gluconat Complex 62.5 mg/5 ml Vial IVPB SCH (09:53)
--- NOTE | 2017-05-19 15:14 | CP.PCM.PN ---
Subjective - Date & Time of Evaluation Date of Evaluation: 05/19/17 Time of Evaluation: 15:12 - Subjective Subjective: still weak, unable to walk gi work up in progress heme pending Objective - Vital Signs/Intake and Output Vital Signs (last 24 hours): Temp Pulse Resp BP Pulse Ox 98.3 F 82 20 119/63 96 05/19/17 09:05 05/19/17 14:35 05/19/17 09:05 05/19/17 09:05 05/19/17 14:35 Intake and Output: 05/19/17 05/19/17 06:59 18:59 Intake Total 150 Balance 150 - Medications Medications: Current Medications Acetaminophen (Tylenol 325mg Tab) 650 mg PO Q6 PRN PRN Reason: Arthritis Aspirin (Ecotrin) 81 mg PO DAILY [facility] Last Admin: 05/19/17 09:45 Dose: 81 mg Enoxaparin Sodium (Lovenox) 30 mg SC DAILY [facility] Last Admin: 05/19/17 09:44 Dose: 30 mg Ferric Sodium Gluconate Complex (Ferrlecit) 125 mg IVPB DAILY [facility] Stop: 05/26/17 10:01 Last Admin: 05/19/17 09:53 Dose: 125 mg Gabapentin (Neurontin) 100 mg PO TID [facility] Last Admin: 05/19/17 13:02 Dose: 100 mg Pantoprazole Sodium (Protonix Ec Tab) 40 mg PO DAILY [facility] Last Admin: 05/19/17 09:45 Dose: 40 mg Tramadol HCl (Ultram) 25 mg PO TID [facility] Last Admin: 05/19/17 13:02 Dose: 25 mg - Labs Labs: 05/18/17 07:43 05/18/17 07:43 PT 13.6 SECONDS (9.7-12.2) H 05/16/17 13:44 INR 1.2 05/16/17 13:44 APTT 34 SECONDS (21-34) 05/16/17 13:44 - Constitutional Appears: Chronically Ill - Head Exam Head Exam: ATRAUMATIC, NORMOCEPHALIC - Eye Exam Eye Exam: Normal appearance - ENT Exam ENT Exam: Mucous Membranes Moist - Respiratory Exam Respiratory Exam: Decreased Breath Sounds - Cardiovascular Exam Cardiovascular Exam: REGULAR RHYTHM, +S1, +S2 - GI/Abdominal Exam GI & Abdominal Exam: Normal Bowel Sounds - Rectal Exam Rectal Exam: Deferred - Neurological Exam Neurological Exam: Alert, Oriented x3 - Psychiatric Exam Psychiatric exam: Normal Affect, Normal Mood - Skin Skin Exam: Intact Assessment and Plan (1) Diarrhea Status: Acute (2) Frequent falls Status: Chronic (3) Back pain Status: Chronic (4) Thrombocytosis Status: Chronic (5) Anemia Status: Chronic (6) Bilateral leg edema Status: Resolved
[2017-05-20 01:56] LABS: TOTAL PROTEIN, SERUM 5.8 g/dL (6.1-8.1)
[2017-05-20 07:39] LABS: CHLORIDE 99 mmol/L (98-107); POTASSIUM 4.3 mmol/L (3.6-5.2); SODIUM 133 mmol/L (132-148)
[2017-05-20 07:42] LABS: BLOOD UREA NITROGEN 18 mg/dL (9-20); CARBON DIOXIDE 26 mmol/L (22-30); GFR AFRICAN-AMERICAN > 60; GLUCOSE,RANDOM 104 mg/dL (75-110)
[2017-05-20 07:43] LABS: CALCIUM 7.9 mg/dl (8.6-10.4)
[2017-05-20 08:18] LABS: BASO # 0.3 K/uL (0.0-0.2); BASO % 2.8 % (0.0-2.0); EOS # 0.7 K/uL (0.0-0.7); EOS % 6.8 % (0.0-4.0); LYMPH # 1.5 K/uL (1.0-4.3); MEAN CORPUSCULAR HEMOGLOBIN 27.2 pg (27.0-31.0); MEAN CORPUSCULAR HGB CONC 33.2 g/dL (33.0-37.0); MEAN PLATELET VOLUME 7.9 fL (7.2-11.7); MONO % 9.5 % (0.0-10.0); NRBC % 0.1 % (0.0-2.0); RED CELL DISTRIBUTION WIDTH 20.1 % (11.5-14.5); WHITE BLOOD COUNT 10.1 K/uL (4.8-10.8)
[2017-05-20 08:43] LABS: MEAN CELL VOLUME 82.1 fL (80.0-94.0)
--- NOTE | 2017-05-20 09:07 | CP.PCM.PN ---
Subjective - Date & Time of Evaluation Date of Evaluation: 05/20/17 Time of Evaluation: 09:04 - Subjective Subjective: COVERING DR HOLLAND Denies diarrhea, pain, bleeding. Confused. No stool studies reports as of this am. Objective - Vital Signs/Intake and Output Vital Signs (last 24 hours): Temp Pulse Resp BP Pulse Ox 98.5 F 73 20 117/62 97 05/20/17 08:00 05/20/17 08:00 05/20/17 08:00 05/20/17 08:00 05/20/17 08:00 Intake and Output: 05/20/17 05/20/17 06:59 18:59 Intake Total 120 Output Total 550 Balance -430 - Medications Medications: Current Medications Acetaminophen (Tylenol 325mg Tab) 650 mg PO Q6 PRN PRN Reason: Arthritis Aspirin (Ecotrin) 81 mg PO DAILY [facility] Last Admin: 05/19/17 09:45 Dose: 81 mg Enoxaparin Sodium (Lovenox) 30 mg SC DAILY [facility] Last Admin: 05/19/17 09:44 Dose: 30 mg Gabapentin (Neurontin) 100 mg PO TID [facility] Last Admin: 05/19/17 17:39 Dose: 100 mg Pantoprazole Sodium (Protonix Ec Tab) 40 mg PO DAILY [facility] Last Admin: 05/19/17 09:45 Dose: 40 mg Tramadol HCl (Ultram) 25 mg PO TID [facility] Last Admin: 05/19/17 17:37 Dose: 25 mg - Labs Labs: 05/20/17 07:14 05/20/17 07:14 PT 13.6 SECONDS (9.7-12.2) H 05/16/17 13:44 INR 1.2 05/16/17 13:44 APTT 34 SECONDS (21-34) 05/16/17 13:44 - Constitutional Appears: No Acute Distress, Chronically Ill - Head Exam Head Exam: ATRAUMATIC, NORMOCEPHALIC - Eye Exam Eye Exam: PERRL. absent: Scleral icterus - Respiratory Exam Respiratory Exam: Decreased Breath Sounds - Cardiovascular Exam Cardiovascular Exam: REGULAR RHYTHM - GI/Abdominal Exam GI & Abdominal Exam: Soft, Normal Bowel Sounds. absent: Distended, Guarding, Tenderness, Mass, Rebound - Rectal Exam Rectal Exam: Deferred - Extremities Exam Extremities Exam: Pedal Edema Assessment and Plan (1) Diarrhea Assessment & Plan: No further diarrhea or bleeding reported Awaiting stool studies as ordered Colonoscopy to be considered if stools non-diagnostic and symptoms persist/ recur. Status: Acute (2) Anemia Assessment & Plan: Check stool occult blood Status: Chronic
[2017-05-20] MEDS: Tramadol 25 mg PO SCH ×3 (09:44→18:25)
[2017-05-20] MEDS: Enoxaparin 30 mg Syringe SC SCH (09:46)
[2017-05-20] MEDS: Pantoprazole 40 mg EC Tab PO SCH (09:46)
[2017-05-21] MEDS: Tramadol 25 mg PO SCH ×3 (09:29→17:55)
[2017-05-21] MEDS: Pantoprazole 40 mg EC Tab PO SCH (09:30)
[2017-05-21] MEDS: Enoxaparin 30 mg Syringe SC SCH (09:30)
--- NOTE | 2017-05-21 09:55 | CP.PCM.PN ---
Subjective - Date & Time of Evaluation Date of Evaluation: 05/21/17 Time of Evaluation: 09:53 - Subjective Subjective: COVERING DR HOLLAND No diarrhea reported. No stool studies reported. Objective - Vital Signs/Intake and Output Vital Signs (last 24 hours): Temp Pulse Resp BP Pulse Ox 98.2 F 76 20 116/63 97 05/21/17 07:23 05/21/17 07:23 05/21/17 07:23 05/21/17 07:23 05/21/17 07:23 Intake and Output: 05/21/17 05/21/17 06:59 18:59 Intake Total 520 Balance 520 - Medications Medications: Current Medications Acetaminophen (Tylenol 325mg Tab) 650 mg PO Q6 PRN PRN Reason: Arthritis Aspirin (Ecotrin) 81 mg PO DAILY [facility] Last Admin: 05/21/17 09:30 Dose: 81 mg Enoxaparin Sodium (Lovenox) 30 mg SC DAILY [facility] Last Admin: 05/21/17 09:30 Dose: 30 mg Gabapentin (Neurontin) 100 mg PO TID [facility] Last Admin: 05/21/17 09:30 Dose: 100 mg Pantoprazole Sodium (Protonix Ec Tab) 40 mg PO DAILY [facility] Last Admin: 05/21/17 09:30 Dose: 40 mg Tramadol HCl (Ultram) 25 mg PO TID [facility] Last Admin: 05/21/17 09:29 Dose: 25 mg - Labs Labs: 05/20/17 07:14 05/20/17 07:14 PT 13.6 SECONDS (9.7-12.2) H 05/16/17 13:44 INR 1.2 05/16/17 13:44 APTT 34 SECONDS (21-34) 05/16/17 13:44 - Constitutional Appears: No Acute Distress - Head Exam Head Exam: ATRAUMATIC, NORMOCEPHALIC - Respiratory Exam Respiratory Exam: NORMAL BREATHING PATTERN - Cardiovascular Exam Cardiovascular Exam: REGULAR RHYTHM - GI/Abdominal Exam GI & Abdominal Exam: Soft, Normal Bowel Sounds. absent: Distended, Guarding, Tenderness, Mass, Rebound - Extremities Exam Extremities Exam: Normal Inspection Assessment and Plan (1) Diarrhea Assessment & Plan: No symptoms per patient at present, pain has resolved as well Awaiting stool studies. Colonoscopy if needed and can be done as outpatient as well. Status: Acute (2) Anemia Assessment & Plan: H/H stable. Stool OB ordered Status: Chronic
--- NOTE | 2017-05-22 09:15 | CON ---
DATE: 05/19/2017 ONCOLOGY CONSULT HISTORY OF PRESENT ILLNESS: He is an 86-year-old man who was admitted from home after a fall with complaints of difficulty walking and pain in the lower back. Hematology consultation was called for severe anemia, which has been progressive and symptomatic. PAST MEDICAL HISTORY: Significant for a prior admission for similar reasons where he complained of back pain after a fall and was found to have fracture of his lumbar spine most likely compression fracture but secondary to arthritic or osteopathic reasons, but MRI showed a bone marrow infiltrative process, cannot rule out metastatic disease. So, hematology consult called for this purpose. REVIEW OF SYSTEMS: The patient is complaining of weight loss up to 20 pounds since the past admission, but says he has gained 5 pounds back during his stay at the rehab facility. Denies any loss of appetite, fevers, or night sweats. He was able to walk with a cane right up until he fell. PHYSICAL EXAMINATION: GENERAL: He is alert, awake, oriented x3. LYMPHATICS: He has no lymphadenopathy. LUNGS: Clear to auscultation. ABDOMEN: He has no organomegaly. EXTREMITIES: Showed no edema. He is able to move all extremities. There is no growth, sensory or motor deficit in his lower extremities. ASSESSMENT AND PLAN: This is an 86-year-old man,admitted after a fall with difficulty walking and findings of severe anemia and an MRI finding of compression fractures of his spine with a possibility of a marrow infiltrative disorder. His prior workup for anemia showed normal vitamin B12 level, normal LDH, and normal iron studies. We will await results of his protein electrophoresis and immunofixation. We will transfuse if his hemoglobin drops below 8. 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 There is no evidence of hemolysis or blood loss anemia at this time. It could also be anemia of chronic disease because of previous infection or poor bone marrow response secondary to his medications and prior antibiotics. We will discuss with the patient about the possibility of a bone marrow biopsy if the workup, i.e., protein electrophoresis and other labs come back normal or negative. Niesha Malhotra MD
--- NOTE | 2017-05-22 10:36 | CP.PCM.PN ---
Subjective - Date & Time of Evaluation Date of Evaluation: 05/22/17 Time of Evaluation: 10:33 - Subjective Subjective: Patient denies having nausea, vomiting, abdominal pain. He states that he had right mid-abdominal discomfort yesterday for a short period of time. He denies having diarrhea, though nurses notes report two bowel movements yesterday. Objective - Vital Signs/Intake and Output Vital Signs (last 24 hours): Temp Pulse Resp BP Pulse Ox 98.3 F 76 20 129/64 97 05/22/17 07:59 05/22/17 07:59 05/22/17 07:59 05/22/17 07:59 05/22/17 07:59 Intake and Output: 05/22/17 05/22/17 06:59 18:59 Intake Total 740 Output Total 600 Balance -600 740 - Medications Medications: Current Medications Acetaminophen (Tylenol 325mg Tab) 650 mg PO Q6 PRN PRN Reason: Arthritis Aspirin (Ecotrin) 81 mg PO DAILY [facility] Last Admin: 05/21/17 09:30 Dose: 81 mg Enoxaparin Sodium (Lovenox) 30 mg SC DAILY [facility] Last Admin: 05/21/17 09:30 Dose: 30 mg Gabapentin (Neurontin) 100 mg PO TID [facility] Last Admin: 05/21/17 17:54 Dose: 100 mg Pantoprazole Sodium (Protonix Ec Tab) 40 mg PO DAILY [facility] Last Admin: 05/21/17 09:30 Dose: 40 mg Tramadol HCl (Ultram) 25 mg PO TID [facility] Last Admin: 05/21/17 17:55 Dose: 25 mg - Labs Labs: 05/20/17 07:14 05/20/17 07:14 PT 13.6 SECONDS (9.7-12.2) H 05/16/17 13:44 INR 1.2 05/16/17 13:44 APTT 34 SECONDS (21-34) 05/16/17 13:44 - Constitutional Appears: No Acute Distress - Head Exam Head Exam: ATRAUMATIC, NORMOCEPHALIC - Eye Exam Eye Exam: EOMI, PERRL - Neck Exam Neck Exam: absent: Lymphadenopathy, Thyromegaly - Respiratory Exam Respiratory Exam: NORMAL BREATHING PATTERN. absent: Rales, Rhonchi, Wheezes - Cardiovascular Exam Cardiovascular Exam: REGULAR RHYTHM, +S1, +S2. absent: Gallop, Rubs, Murmur - GI/Abdominal Exam GI & Abdominal Exam: Soft, Normal Bowel Sounds. absent: Tenderness, Mass, Organomegaly - Rectal Exam Rectal Exam: Deferred - Extremities Exam Extremities Exam: absent: Calf Tenderness, Pedal Edema Assessment and Plan (1) Diarrhea Assessment & Plan: No stool studies have been sent. Will check these when they are available. He is also anemic, with the most recent HGB 8.6, and ferritin 490 (iron and TIBC not yet reported). Will consider colonoscopy once the work up for myeloma or other infiltrative processes in the bone marrow has been completed. Status: Acute
[2017-05-22] MEDS: Pantoprazole 40 mg EC Tab PO SCH (11:21)
[2017-05-22] MEDS: Enoxaparin 30 mg Syringe SC SCH (11:21)
[2017-05-22] MEDS: Tramadol 25 mg PO SCH ×3 (11:23→17:20)
--- NOTE | 2017-05-22 16:47 | NM ---
PROCEDURE: Whole Body Bone Scan HISTORY: lumbar spine compression fracture COMPARISON: 01/13/2014 CT abdomen and pelvis TECHNIQUE: Following administration of 24.2 miCu of Tc MDP multiplanar whole body images were obtained. FINDINGS: Evidence for bony metastatic disease: None. Degenerative uptake: She uptake in the L2, L4 and L5 vertebral bodies consistent with clinically suspected compression fractures. Comparison with the lumbar spine of the recent CT of the abdomen pelvis confirms the abnormality at L2. The findings in lower lumbar spine are less impressive Physiologic uptake: Normal physiologic activity in the kidneys. Other findings: Additional focus of increased uptake antro lateral left 7th rib of uncertain etiology, significance. IMPRESSION: Foci of increased uptake upper and lower lumbar spine consistent with findings on recent CT scan.
--- NOTE | 2017-05-22 19:55 | CP.PCM.PN ---
Subjective - Date & Time of Evaluation Date of Evaluation: 05/22/17 Time of Evaluation: 19:47 - Subjective Subjective: The patient seems comfortable, not ambulating or not able to bear weight. Bone scan showing increased uptake in areas of compression fractures. SPEP and immunofixation pending. CAT scan so far not showing any abnormal / areas of concern Objective - Vital Signs/Intake and Output Vital Signs (last 24 hours): Temp Pulse Resp BP Pulse Ox 99.4 F 75 20 130/72 95 05/22/17 16:00 05/22/17 16:00 05/22/17 16:00 05/22/17 16:00 05/22/17 16:00 Intake and Output: 05/22/17 05/23/17 18:59 06:59 Intake Total 740 Output Total 400 Balance 340 - Medications Medications: Current Medications Acetaminophen (Tylenol 325mg Tab) 650 mg PO Q6 PRN PRN Reason: Arthritis Aspirin (Ecotrin) 81 mg PO DAILY [facility] Last Admin: 05/22/17 11:21 Dose: 81 mg Enoxaparin Sodium (Lovenox) 30 mg SC DAILY [facility] Last Admin: 05/22/17 11:21 Dose: 30 mg Gabapentin (Neurontin) 100 mg PO TID [facility] Last Admin: 05/22/17 17:20 Dose: 100 mg Pantoprazole Sodium (Protonix Ec Tab) 40 mg PO DAILY [facility] Last Admin: 05/22/17 11:21 Dose: 40 mg Tramadol HCl (Ultram) 25 mg PO TID [facility] Last Admin: 05/22/17 17:20 Dose: 25 mg - Labs Labs: 05/20/17 07:14 05/20/17 07:14 PT 13.6 SECONDS (9.7-12.2) H 05/16/17 13:44 INR 1.2 05/16/17 13:44 APTT 34 SECONDS (21-34) 05/16/17 13:44 Assessment and Plan (1) Anemia Assessment & Plan: 86 yo man with anemia and thrombocytosis, several compression fractures of lumbar spine? post traumatic versus pathologic. Work up showing normal B12, iron studies, normal CAT scans. Will order tumor markers, flow cytometry, JAK2 mutation. Possible etio include-bone marrow etio-MDS with thrombocytosis, ??reactive increase(elevated sed rate),?? malignancy. Tumor markers ordered, so also flow and JAK2 mutation. Status: Acute
[2017-05-23] MEDS: Pantoprazole 40 mg EC Tab PO SCH (10:17)
[2017-05-23] MEDS: Tramadol 25 mg PO SCH ×3 (10:18→17:37)
[2017-05-23] MEDS: Enoxaparin 30 mg Syringe SC SCH (10:19)
--- NOTE | 2017-05-23 16:53 | CP.PCM.PN ---
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 Objective - Vital Signs/Intake and Output Vital Signs (last 24 hours): Temp Pulse Resp BP Pulse Ox 89.6 F L 69 20 132/69 96 05/23/17 15:00 05/23/17 15:00 05/23/17 15:00 05/23/17 15:00 05/23/17 15:00 Intake and Output: 05/23/17 05/23/17 06:59 18:59 Intake Total 200 350 Balance 200 350 - Medications Medications: Current Medications Acetaminophen (Tylenol 325mg Tab) 650 mg PO Q6 PRN PRN Reason: Arthritis Aspirin (Ecotrin) 81 mg PO DAILY [facility] Last Admin: 05/23/17 10:17 Dose: 81 mg Enoxaparin Sodium (Lovenox) 30 mg SC DAILY [facility] Last Admin: 05/23/17 10:19 Dose: 30 mg Gabapentin (Neurontin) 100 mg PO TID [facility] Last Admin: 05/23/17 13:24 Dose: 100 mg Pantoprazole Sodium (Protonix Ec Tab) 40 mg PO DAILY [facility] Last Admin: 05/23/17 10:17 Dose: 40 mg Tramadol HCl (Ultram) 25 mg PO TID [facility] Last Admin: 05/23/17 13:24 Dose: 25 mg - Labs Labs: 05/20/17 07:14 05/20/17 07:14 PT 13.6 SECONDS (9.7-12.2) H 05/16/17 13:44 INR 1.2 05/16/17 13:44 APTT 34 SECONDS (21-34) 05/16/17 13:44 - Constitutional Appears: Chronically Ill - Head Exam Head Exam: ATRAUMATIC, NORMOCEPHALIC - Eye Exam Eye Exam: Normal appearance - ENT Exam ENT Exam: Mucous Membranes Moist - Respiratory Exam Respiratory Exam: Decreased Breath Sounds - Cardiovascular Exam Cardiovascular Exam: REGULAR RHYTHM, +S1, +S2 - GI/Abdominal Exam GI & Abdominal Exam: Normal Bowel Sounds - Rectal Exam Rectal Exam: Deferred - Neurological Exam Neurological Exam: Alert, Awake, Oriented x3 - Psychiatric Exam Psychiatric exam: Flat Affect - Skin Skin Exam: Intact Assessment and Plan (1) Diarrhea Status: Acute (2) Frequent falls Status: Chronic (3) Back pain Status: Chronic (4) Thrombocytosis Status: Chronic (5) Anemia Status: Chronic (6) Bilateral leg edema Status: Resolved
[2017-05-24] MEDS: Enoxaparin 30 mg Syringe SC SCH (09:21)
[2017-05-24] MEDS: Tramadol 25 mg PO SCH ×3 (09:21→18:27)
[2017-05-24] MEDS: Pantoprazole 40 mg EC Tab PO SCH (09:21)
[2017-05-24] MEDS ORDERED: Lidocaine 1% Inj (20ml) IV ONE (11:47)
[2017-05-24 12:23] LABS: MEAN PLATELET VOLUME 7.7 fL (7.2-11.7)
[2017-05-24 12:27] LABS: BASO # 0.4 K/uL (0.0-0.2); BASO % 3.6 % (0.0-2.0); EOS # 0.7 K/uL (0.0-0.7); EOS % 6.7 % (0.0-4.0); HEMATOCRIT 25.6 % (35.0-51.0); LYMPH # 1.8 K/uL (1.0-4.3); LYMPH % 16.9 % (20.0-40.0); MEAN CORPUSCULAR HGB CONC 32.9 g/dL (33.0-37.0); NRBC % 0.1 % (0.0-2.0); PLATELET COUNT 859 K/uL (130-400); WHITE BLOOD COUNT 10.9 K/uL (4.8-10.8)
[2017-05-24 12:30] LABS: BLOOD UREA NITROGEN 22 mg/dL (9-20); CALCIUM 8.1 mg/dl (8.6-10.4); CARBON DIOXIDE 28 mmol/L (22-30); CHLORIDE 98 mmol/L (98-107); GFR AFRICAN-AMERICAN > 60; GLUCOSE,RANDOM 80 mg/dL (75-110); POTASSIUM 4.4 mmol/L (3.6-5.2); SODIUM 132 mmol/L (132-148)
[2017-05-24 12:31] LABS: MEAN CELL VOLUME 75.9 fL (80.0-94.0)
[2017-05-24 13:56] LABS: EOSINOPHIL 7 % (0-4); MYELOCYTE 4 % (0-0); NEUTROPHIL 59 % (50-75); TOTAL CELLS COUNTED 100
--- NOTE | 2017-05-24 18:05 | CP.PCM.PN ---
Subjective - Date & Time of Evaluation Date of Evaluation: 05/24/17 Time of Evaluation: 18:02 - Subjective Subjective: The patient is clinically unchanged, some persistent back pain, but with good appetite and tolerating PT. Have discussed with patient regarding bone marrow biopsy, he is not ready to do it and wants to think about it Objective - Vital Signs/Intake and Output Vital Signs (last 24 hours): Temp Pulse Resp BP Pulse Ox 99.2 F 74 20 116/64 95 05/24/17 15:42 05/24/17 15:42 05/24/17 15:42 05/24/17 15:42 05/24/17 15:42 Intake and Output: 05/24/17 05/24/17 06:59 18:59 Intake Total 450 400 Output Total 1050 Balance -600 400 - Medications Medications: Current Medications Acetaminophen (Tylenol 325mg Tab) 650 mg PO Q6 PRN PRN Reason: Arthritis Aspirin (Ecotrin) 81 mg PO DAILY [facility] Last Admin: 05/24/17 09:21 Dose: 81 mg Enoxaparin Sodium (Lovenox) 30 mg SC DAILY [facility] Last Admin: 05/24/17 09:21 Dose: 30 mg Gabapentin (Neurontin) 100 mg PO TID [facility] Last Admin: 05/24/17 13:41 Dose: 100 mg Pantoprazole Sodium (Protonix Ec Tab) 40 mg PO DAILY [facility] Last Admin: 05/24/17 09:21 Dose: 40 mg Tramadol HCl (Ultram) 25 mg PO TID [facility] Last Admin: 05/24/17 13:41 Dose: 25 mg - Labs Labs: 05/24/17 12:01 05/24/17 12:01 PT 13.6 SECONDS (9.7-12.2) H 05/16/17 13:44 INR 1.2 05/16/17 13:44 APTT 34 SECONDS (21-34) 05/16/17 13:44 Assessment and Plan (1) Anemia Assessment & Plan: Anemia with thrombocytosis, await results of flow cytometry and JAK2 mutation testing. Hold off on PRBC transfusion for now. If patient willing, will do bone marrow tomorrow Status: Acute
[2017-05-24 20:33] LABS: ABNORMAL PROTEIN BAND 1 0.42 g/dL (None Detected); BETA 1 GLOBULIN 0.7 g/dL (0.4-0.6); BETA 2 GLOBULIN 0.3 g/dL (0.2-0.5); GAMMA GLOBULIN 1.1 g/dL (0.8-1.7)
--- NOTE | 2017-05-24 21:45 | CP.PCM.PN ---
Subjective - Date & Time of Evaluation Date of Evaluation: 05/24/17 Time of Evaluation: 21:43 - Subjective Subjective: c/o back pain, Objective - Vital Signs/Intake and Output Vital Signs (last 24 hours): Temp Pulse Resp BP Pulse Ox 99.2 F 74 20 116/64 95 05/24/17 15:42 05/24/17 15:42 05/24/17 15:42 05/24/17 15:42 05/24/17 15:42 Intake and Output: 05/24/17 05/25/17 18:59 06:59 Intake Total 400 Balance 400 - Medications Medications: Current Medications Acetaminophen (Tylenol 325mg Tab) 650 mg PO Q6 PRN PRN Reason: Arthritis Aspirin (Ecotrin) 81 mg PO DAILY [facility] Last Admin: 05/24/17 09:21 Dose: 81 mg Enoxaparin Sodium (Lovenox) 30 mg SC DAILY [facility] Last Admin: 05/24/17 09:21 Dose: 30 mg Gabapentin (Neurontin) 100 mg PO TID [facility] Last Admin: 05/24/17 18:27 Dose: 100 mg Pantoprazole Sodium (Protonix Ec Tab) 40 mg PO DAILY [facility] Last Admin: 05/24/17 09:21 Dose: 40 mg Tramadol HCl (Ultram) 25 mg PO TID [facility] Last Admin: 05/24/17 18:27 Dose: 25 mg - Labs Labs: 05/24/17 12:01 05/24/17 12:01 PT 13.6 SECONDS (9.7-12.2) H 05/16/17 13:44 INR 1.2 05/16/17 13:44 APTT 34 SECONDS (21-34) 05/16/17 13:44 - Constitutional Appears: Chronically Ill - Head Exam Head Exam: ATRAUMATIC, NORMOCEPHALIC - Eye Exam Eye Exam: Normal appearance - ENT Exam ENT Exam: Mucous Membranes Moist - Respiratory Exam Respiratory Exam: Decreased Breath Sounds - Cardiovascular Exam Cardiovascular Exam: REGULAR RHYTHM, +S2, +S4 - GI/Abdominal Exam GI & Abdominal Exam: Normal Bowel Sounds - Rectal Exam Rectal Exam: Deferred - Extremities Exam Extremities Exam: Pedal Edema - Back Exam Back Exam: vertebral tenderness - Neurological Exam Neurological Exam: Alert, Oriented x3 - Psychiatric Exam Psychiatric exam: Flat Affect - Skin Skin Exam: Intact Assessment and Plan (1) Diarrhea Status: Acute (2) Frequent falls Status: Chronic (3) Back pain Status: Chronic (4) Thrombocytosis Status: Chronic (5) Anemia Status: Chronic (6) Bilateral leg edema Status: Resolved
[2017-05-25] MEDS: Tramadol 25 mg PO SCH ×3 (10:16→17:46)
[2017-05-25] MEDS: Enoxaparin 30 mg Syringe SC SCH (10:16)
[2017-05-25] MEDS: Pantoprazole 40 mg EC Tab PO SCH (10:16)
[2017-05-25 15:33] VITALS: BP 122/65; TEMP 98.3
--- NOTE | 2017-05-25 17:13 | CP.PCM.PN ---
Subjective - Date & Time of Evaluation Date of Evaluation: 05/25/17 Time of Evaluation: 17:10 - Subjective Subjective: now agreeable for bone marrow bx Objective - Vital Signs/Intake and Output Vital Signs (last 24 hours): Temp Pulse Resp BP Pulse Ox 98.3 F 70 20 122/65 95 05/25/17 15:32 05/25/17 15:32 05/25/17 15:32 05/25/17 15:32 05/25/17 15:32 Intake and Output: 05/25/17 05/25/17 06:59 18:59 Intake Total 450 Output Total 900 Balance -450 - Medications Medications: Current Medications Acetaminophen (Tylenol 325mg Tab) 650 mg PO Q6 PRN PRN Reason: Arthritis Aspirin (Ecotrin) 81 mg PO DAILY [facility] Last Admin: 05/25/17 10:16 Dose: 81 mg Enoxaparin Sodium (Lovenox) 30 mg SC DAILY [facility] Last Admin: 05/25/17 10:16 Dose: 30 mg Gabapentin (Neurontin) 100 mg PO TID [facility] Last Admin: 05/25/17 14:22 Dose: 100 mg Pantoprazole Sodium (Protonix Ec Tab) 40 mg PO DAILY [facility] Last Admin: 05/25/17 10:16 Dose: 40 mg Tramadol HCl (Ultram) 25 mg PO TID [facility] Last Admin: 05/25/17 14:22 Dose: 25 mg - Labs Labs: 05/24/17 12:01 05/24/17 12:01 PT 13.6 SECONDS (9.7-12.2) H 05/16/17 13:44 INR 1.2 05/16/17 13:44 APTT 34 SECONDS (21-34) 05/16/17 13:44 - Constitutional Appears: Chronically Ill - Head Exam Head Exam: ATRAUMATIC, NORMOCEPHALIC - Eye Exam Eye Exam: Normal appearance - ENT Exam ENT Exam: Mucous Membranes Moist - Respiratory Exam Respiratory Exam: Decreased Breath Sounds - Cardiovascular Exam Cardiovascular Exam: REGULAR RHYTHM, +S1, +S2 - GI/Abdominal Exam GI & Abdominal Exam: Normal Bowel Sounds - Rectal Exam Rectal Exam: Deferred - Back Exam Back Exam: tenderness - Neurological Exam Neurological Exam: Alert, Awake, Oriented x3 - Psychiatric Exam Psychiatric exam: Flat Affect - Skin Skin Exam: Intact Assessment and Plan (1) Diarrhea Status: Acute (2) Frequent falls Status: Chronic (3) Back pain Status: Chronic (4) Thrombocytosis Status: Chronic (5) Anemia Status: Chronic (6) Bilateral leg edema Status: Resolved
--- NOTE | 2017-05-25 17:14 | CP.PCM.PN ---
Subjective - Date & Time of Evaluation Date of Evaluation: 05/25/17 Time of Evaluation: 11:00 - Subjective Subjective: Alert, awake, denies acute pain, NAD. Objective - Vital Signs/Intake and Output Vital Signs (last 24 hours): Temp Pulse Resp BP Pulse Ox 98.3 F 70 20 122/65 95 05/25/17 15:32 05/25/17 15:32 05/25/17 15:32 05/25/17 15:32 05/25/17 15:32 Intake and Output: 05/25/17 05/25/17 06:59 18:59 Intake Total 450 Output Total 900 Balance -450 - Medications Medications: Current Medications Acetaminophen (Tylenol 325mg Tab) 650 mg PO Q6 PRN PRN Reason: Arthritis Aspirin (Ecotrin) 81 mg PO DAILY [facility] Last Admin: 05/25/17 10:16 Dose: 81 mg Enoxaparin Sodium (Lovenox) 30 mg SC DAILY [facility] Last Admin: 05/25/17 10:16 Dose: 30 mg Gabapentin (Neurontin) 100 mg PO TID [facility] Last Admin: 05/25/17 14:22 Dose: 100 mg Pantoprazole Sodium (Protonix Ec Tab) 40 mg PO DAILY [facility] Last Admin: 05/25/17 10:16 Dose: 40 mg Tramadol HCl (Ultram) 25 mg PO TID [facility] Last Admin: 05/25/17 14:22 Dose: 25 mg - Labs Labs: 05/24/17 12:01 05/24/17 12:01 PT 13.6 SECONDS (9.7-12.2) H 05/16/17 13:44 INR 1.2 05/16/17 13:44 APTT 34 SECONDS (21-34) 05/16/17 13:44 Assessment and Plan - Assessment and Plan (Free Text) Assessment: Patient admitted with anemia and compression fracture, unable to walk, seen and examined. Alert, awake, did not want bone marrow biopsy done now. D/W DR Fuller and DR Bustos, plan to discharge to [facility] for rehab. To be followed up by the oncologyst.
[2017-05-25] MEDS ORDERED: Lidocaine 2% Inj (20ml) ONE (17:34)
--- NOTE | 2017-05-25 17:39 | CP.PCM.PN ---
Subjective - Date & Time of Evaluation Date of Evaluation: 05/25/17 Time of Evaluation: 17:21 - Subjective Subjective: The patient is scheduled to leave for retirement. agrees to bone marrow. Procedure note- s/p bone marrow biopsy under local anesthesia, left iliac crest. Sent for flow and biopsy path. Patient tolerated procedure well Objective - Vital Signs/Intake and Output Vital Signs (last 24 hours): Temp Pulse Resp BP Pulse Ox 98.3 F 70 20 122/65 95 05/25/17 15:32 05/25/17 15:32 05/25/17 15:32 05/25/17 15:32 05/25/17 15:32 Intake and Output: 05/25/17 05/25/17 06:59 18:59 Intake Total 450 Output Total 900 Balance -450 - Medications Medications: Current Medications Acetaminophen (Tylenol 325mg Tab) 650 mg PO Q6 PRN PRN Reason: Arthritis Aspirin (Ecotrin) 81 mg PO DAILY [facility] Last Admin: 05/25/17 10:16 Dose: 81 mg Enoxaparin Sodium (Lovenox) 30 mg SC DAILY [facility] Last Admin: 05/25/17 10:16 Dose: 30 mg Gabapentin (Neurontin) 100 mg PO TID [facility] Last Admin: 05/25/17 14:22 Dose: 100 mg Pantoprazole Sodium (Protonix Ec Tab) 40 mg PO DAILY [facility] Last Admin: 05/25/17 10:16 Dose: 40 mg Tramadol HCl (Ultram) 25 mg PO TID [facility] Last Admin: 05/25/17 14:22 Dose: 25 mg - Labs Labs: 05/24/17 12:01 05/24/17 12:01 PT 13.6 SECONDS (9.7-12.2) H 05/16/17 13:44 INR 1.2 05/16/17 13:44 APTT 34 SECONDS (21-34) 05/16/17 13:44 Assessment and Plan (1) Anemia Status: Acute
[2017-05-25 17:47] VITALS: PULSE 81; O2SAT 96
--- NOTE | 2017-05-31 10:26 | CP.PCM.DIS ---
Provider - Provider Date of Admission: 05/16/17 19:34 Attending physician: Abe Fuller MD Time Spent in preparation of Discharge (in minutes): 25 Diagnosis - Discharge Diagnosis (1) Diarrhea Status: Acute (2) Frequent falls Status: Chronic (3) Back pain Status: Chronic (4) Thrombocytosis Status: Chronic (5) Anemia Status: Chronic (6) Bilateral leg edema Status: Resolved Hospital Course - Lab Results Lab Results: Most Recent Lab Values WBC 10.9 K/uL (4.8-10.8) H 05/24/17 12:01 RBC 3.38 Mil/uL (4.40-5.90) L 05/24/17 12:01 Hgb 8.4 g/dL (12.0-18.0) L 05/24/17 12:01 Hct 25.6 % (35.0-51.0) L 05/24/17 12:01 MCV 75.9 fL (80.0-94.0) L D 05/24/17 12:01 MCH 25.0 pg (27.0-31.0) L 05/24/17 12:01 MCHC 32.9 g/dL (33.0-37.0) L 05/24/17 12:01 RDW 20.0 % (11.5-14.5) H 05/24/17 12:01 Plt Count 859 K/uL (130-400) H 05/24/17 12:01 MPV 7.7 fL (7.2-11.7) 05/24/17 12:01 Neut % (Auto) 63.8 % (50.0-75.0) 05/24/17 12:01 Lymph % (Auto) 16.9 % (20.0-40.0) L 05/24/17 12:01 Starke % (Auto) 9.0 % (0.0-10.0) 05/24/17 12:01 Eos % (Auto) 6.7 % (0.0-4.0) H 05/24/17 12:01 Baso % (Auto) 3.6 % (0.0-2.0) H 05/24/17 12:01 Neut # 6.9 K/uL (1.8-7.0) 05/24/17 12:01 Lymph # 1.8 K/uL (1.0-4.3) 05/24/17 12:01 Starke # 1.0 K/uL (0.0-0.8) H 05/24/17 12:01 Eos # 0.7 K/uL (0.0-0.7) 05/24/17 12:01 Baso # 0.4 K/uL (0.0-0.2) H 05/24/17 12:01 Neutrophils % (Manual) 59 % (50-75) 05/24/17 12:01 Band Neutrophils % 4 % (0-2) H 05/24/17 12:01 Lymphocytes % (Manual) 15 % (20-40) L 05/24/17 12:01 Monocytes % (Manual) 11 % (0-10) H 05/24/17 12:01 Eosinophils % (Manual) 7 % (0-4) H 05/24/17 12:01 Myelocytes % 4 % (0-0) H 05/24/17 12:01 Differential Comment 05/20/17 07:14 Platelet Estimate Increased (NORMAL) H 05/24/17 12:01 Large Platelets Present 05/18/17 07:43 Giant Platelets Present 05/18/17 07:43 Polychromasia Slight 05/24/17 12:01 Hypochromasia (manual) Slight 05/24/17 12:01 Poikilocytosis (manual Slight 05/18/17 07:43 Basophilic Stippling Slight 05/18/17 07:43 Anisocytosis (manual) Moderate 05/24/17 12:01 Microcytosis (manual) Moderate 05/24/17 12:01 Tear Drop Cells Slight 05/24/17 12:01 Ovalocytes Slight 05/24/17 12:01 Smear Path Review 05/24/17 12:01 ESR 92 mm/hr (0-15) H 05/18/17 07:43 PT 13.6 SECONDS (9.7-12.2) H 05/16/17 13:44 INR 1.2 05/16/17 13:44 APTT 34 SECONDS (21-34) 05/16/17 13:44 Sodium 132 mmol/L (132-148) 05/24/17 12:01 Potassium 4.4 mmol/L (3.6-5.2) 05/24/17 12:01 Chloride 98 mmol/L (98-107) 05/24/17 12:01 Carbon Dioxide 28 mmol/L (22-30) 05/24/17 12:01 Anion Gap 10 (10-20) 05/24/17 12:01 BUN 22 mg/dL (9-20) H 05/24/17 12:01 Creatinine 0.6 mg/dL (0.8-1.5) L 05/24/17 12:01 Est GFR ( Amer) > 60 05/24/17 12:01 Est GFR (Non-Af Amer) > 60 05/24/17 12:01 Random Glucose 80 mg/dL (75-110) 05/24/17 12:01 Calcium 8.1 mg/dl (8.6-10.4) L 05/24/17 12:01 Phosphorus 3.5 mg/dL (2.5-4.5) 05/16/17 14:41 Magnesium 1.7 mg/dL (1.6-2.3) 05/18/17 07:43 Iron 18 ug/dL (49-181) L 05/17/17 17:09 TIBC 164 ug/dL (250-450) L 05/17/17 17:09 % Saturation 11 (20-55) L 05/17/17 17:09 Ferritin 490.0 ng/mL 05/17/17 17:09 Total Bilirubin 0.6 mg/dL (0.2-1.3) 05/16/17 14:41 AST 14 U/L (17-59) L D 05/16/17 14:41 ALT 21 U/L (21-72) 05/16/17 14:41 Alkaline Phosphatase 75 U/L (38-126) 05/16/17 14:41 Troponin I < 0.0120 ng/mL (0.00-0.120) 05/16/17 14:41 C-React Prot High Sens > 15.00 mg/L (1.00-3.00) H 05/19/17 06:31 NT-Pro-B Natriuret Pep 1550 pg/mL (0-900) H 05/16/17 14:41 Total Protein 7.5 g/dL (6.3-8.3) 05/16/17 14:41 Total Protein (PEP) 5.8 g/dL (6.1-8.1) L 05/19/17 06:31 Albumin 3.7 g/dL (3.5-5.0) 05/16/17 14:41 Albumin (PEP) 2.4 g/dL (3.8-4.8) L 05/19/17 06:31 Globulin 3.8 gm/dL (2.2-3.9) 05/16/17 14:41 Albumin/Globulin Ratio 1.0 (1.0-2.1) 05/16/17 14:41 Qmaqo-2-Qprgxkjvj 0.4 g/dL (0.2-0.3) H 05/19/17 06:31 Iyrzm-2-Kcfjeabgl 0.8 g/dL (0.5-0.9) 05/19/17 06:31 Bdpw-3-Uqnhbdld 0.7 g/dL (0.4-0.6) H 05/19/17 06:31 Yovl-9-Kwgvsywj 0.3 g/dL (0.2-0.5) 05/19/17 06:31 Gamma Globulins 1.1 g/dL (0.8-1.7) 05/19/17 06:31 Abnorm Protein Band 1 0.42 g/dL (None Detected) H 05/19/17 06:31 Abnorm Protein Band 2 TEST NOT PERFORMED 05/19/17 06:31 Abnorm Protein Band 3 TEST NOT PERFORMED 05/19/17 06:31 Lipase 106 U/L (23-300) 05/16/17 14:41 Vitamin B12 848 pg/mL (239-931) 05/17/17 17:09 Folate 7.0 ng/mL 05/18/17 07:43 Free T4 1.48 ng/dL (0.78-2.19) 05/18/17 07:43 TSH 3rd Generation 0.20 mIU/L (0.46-4.68) L 05/18/17 07:43 Urine Color Yellow (YELLOW) 05/16/17 14:41 Urine Clarity Clear (Clear) 05/16/17 14:41 Urine pH 5.0 (5.0-8.0) 05/16/17 14:41 Ur Specific [place] 1.021 (1.003-1.030) 05/16/17 14:41 Urine Protein Negative mg/dL (NEGATIVE) 05/16/17 14:41 Urine Glucose (UA) Normal mg/dL (Normal) 05/16/17 14:41 Urine Ketones Negative mg/dL (NEGATIVE) 05/16/17 14:41 Urine Blood Negative (NEGATIVE) 05/16/17 14:41 Urine Nitrate Negative (NEGATIVE) 05/16/17 14:41 Urine Bilirubin Negative (NEGATIVE) 05/16/17 14:41 Urine Urobilinogen Normal mg/dL (0.2-1.0) 05/16/17 14:41 Ur Leukocyte Esterase Neg Osmany/uL (Negative) 05/16/17 14:41 Urine WBC (Auto) 1 /hpf (0-5) 05/16/17 14:41 Ur Squamous Epith Cells 1 /hpf (0-5) 05/16/17 14:41 Calcium Oxalate Crystal Rare /hpf (<OCC) 05/16/17 14:41 ALEXANDER & SPEP Interp See note 05/19/17 06:31 Serum Immunofixation Detected (Not Detected) H 05/19/17 06:31 Discharge Exam - Head Exam Head Exam: ATRAUMATIC, NORMOCEPHALIC - Eye Exam Eye Exam: Normal appearance Pupil Exam: NORMAL ACCOMODATION - Neck Exam Neck exam: Normal Inspection - Respiratory Exam Respiratory Exam: Decreased Breath Sounds, NORMAL BREATHING PATTERN - Cardiovascular Exam Cardiovascular Exam: REGULAR RHYTHM, +S1, +S2 - GI/Abdominal Exam GI & Abdominal Exam: Normal Bowel Sounds - Rectal Exam Rectal Exam: Deferred - Extremities Exam Extremities exam: pedal edema - Neurological Exam Neurological exam: Alert, Oriented x3 - Psychiatric Exam Psychiatric exam: Flat Affect - Skin Skin Exam: Intact Discharge Plan - Follow Up Plan Condition: FAIR Disposition: REHAB FACILITY/REHAB UNIT Instructions: Fall Prevention for Older Adults (GEN), Acute Abdominal Pain (DC) , Acute Abdominal Pain (GEN), Back Pain (GEN), Weakness (GEN) Referrals: Abe Fuller MD [Staff Provider] -
== END 2017-05-25 21:05 | DRG 812 ==
LOC: C.ER 12:17 → C.9E 19:34 → C.3T 20:01
PROVIDERS: ADMIT Internal Medicine Pulmonary Disease; ATTEND Internal Medicine Pulmonary Disease
PROC: 07DR3ZX Extraction of Iliac Bone Marrow, Percutaneous Approach, Diagnostic (ICD-10-PCS; principal; 2017-05-25)
DX: D46.9 Myelodysplastic syndrome, unspecified (principal); M48.56XA Collapsed vertebra, not elsewhere classified, lumbar region, initial encounter for fracture; W19.XXXA Unspecified fall, initial encounter; E61.1 Iron deficiency; R29.6 Repeated falls; R19.7 Diarrhea, unspecified; R79.89 Other specified abnormal findings of blood chemistry; Z91.81 History of falling